=== PATIENT | male | born 1945 | race Caucasian/White ===

== ENCOUNTER 2018-08-06 06:22 | Day surgery (SDC) | payer MEDICARE, BC ==
[~2018-08-06 06:22] MED LIST: Acetaminophen TAB* 325 MG PO PRN; Buffered Lidocaine 0.9% SYRIN* 5 ML/SYR SYRINGE INTRADERM ONE
[2018-08-06] MEDS ORDERED: Midazolam* 1 MG/ML 5 ML VIAL (5 MG) ONE (07:32)
[2018-08-06] MEDS ORDERED: fentaNYL* 50 MCG/ML 2 ML VIAL (100 MCG VIAL) ONE (07:32)
[2018-08-06 08:30] VITALS: BP 101/59
[2018-08-06] MEDS ORDERED: Lidocaine 1%* 5 ML VIAL ONE (15:26)
[2018-08-06] MEDS ORDERED: Phenylephrine 2.5% OPTH.SOL* 2 ML BTL ONE (15:26)
[2018-08-06] MEDS ORDERED: Tetracaine 0.5% OPTH.SOL 4 ML* 1 DROP BTL ONE (15:26)
[2018-08-06] MEDS ORDERED: Neomycin/Polymy/Dex OPHTH.OIN* 3.5 GM ONE (15:26)
[2018-08-06] MEDS ORDERED: Ketorolac 0.5% OPHTH (NF) 0.5 % 5 ML BTL ONE (15:26)
[2018-08-06] MEDS ORDERED: Cyclopentolate 1% OPTH.SOL* 2 ML BTL ONE (15:26)
[2018-08-06] MEDS ORDERED: Tropicamide 1% OPTH.SOL* BTL ONE (15:26)
--- NOTE | 2018-08-06 20:32 | OP ---
DATE OF OPERATION: 08/06/18 - [facility] DATE OF : 41 SURGEON: William Martel MD LOCOMOTIVE MECHANIC APPRENTICE: None. ANESTHESIA: Topical with intravenous sedation. PRE-OP DIAGNOSIS: Cataract and glaucoma, right eye. POST-OP DIAGNOSIS: Cataract and glaucoma, right eye. OPERATIVE PROCEDURE: Phacoemulsification and cataract extraction with posterior chamber intraocular lens implant and iStent implant, right eye. COMPLICATIONS: None. BLOOD LOSS: None. DESCRIPTION OF PROCEDURE: The patient was brought to the operating room and received intravenous sedation. A drop of Tetracaine was placed in his right eye. The patient was prepped and draped in usual sterile fashion for ophthalmic surgery and attention was directed to the right eye where a speculum was placed. A paracentesis was created at the 11 o'clock position and 0.1 cc of 1% preservative- free lidocaine was injected into the anterior chamber followed by DisCoVisc. The eye was digitally stabilized while a 2.75 mm keratome was used to create a triplanar clear corneal incision at the 9 o'clock position. A continuous curvilinear capsulorrhexis was created with a cystotome and Utrata forceps. BSS on a cannula was used to hydrodissect the lens from the capsule. Phacoemulsification was performed in a [id number]-rdzftnn technique to create 4 fragments, which were removed. Residual cortical material was removed with irrigation and aspiration. DisCoVisc was used to inflate the capsular bag. An AU00T0 15.5 diopter lens was inserted into the capsular bag. Supplemental DisCoVisc was used to deepen the anterior chamber and coat the surface of the cornea. The patient's head was rotated away from the surgeon and the microscope was rotated toward the surgeon. A gonioprism was placed on the surface of the eye. An iStent inject extracorporeal circulation specialist was introduced into the anterior chamber. Under direct visualization, an iStent inject was placed at the 2 o' clock and then the 4 o'clock position. The iStent inject extracorporeal circulation specialist and the gonioprism were removed. The head and microscope were returned to a neutral position. Irrigation and aspiration were performed to remove viscoelastic from the eye. BSS on a cannula was used to hydrate the corneal stroma and seal the wound. At the end of the case, the pupil was round, the lens was centered and stable, the iStent inject were in position. The eye pressure appeared normal and the wound was water tight. The speculum was removed and topical Maxitrol ointment was placed on the surface of the eye. The eye was closed, patched and shielded and the patient was sent to the recovery room in stable condition with postoperative instructions and followup appointment given. [id number]/[facility]PS #: [id number] [facility]
== END 2018-08-06 08:37 | disposition home or self-care (01) ==
LOC: OREAST 06:22
PROVIDERS: ATTEND Ophthalmology
DX: H25.11 Age-related nuclear cataract, right eye (principal); H40.10X1 Unspecified open-angle glaucoma, mild stage; Z85.46 Personal history of malignant neoplasm of prostate; Z85.819 Personal history of malignant neoplasm of unspecified site of lip, oral cavity, and pharynx; Z85.21 Personal history of malignant neoplasm of larynx; Z87.891 Personal history of nicotine dependence; I25.10 Atherosclerotic heart disease of native coronary artery without angina pectoris; Z95.1 Presence of aortocoronary bypass graft; I10 Essential (primary) hypertension
CPT/HCPCS: A9270-GY; C1783; J2250; J3010; V2632

== ENCOUNTER 2018-08-13 07:29 | Day surgery (SDC) | payer MEDICARE, BC ==
[2018-08-13] MEDS ORDERED: Midazolam* 1 MG/ML 2 ML VIAL (2 MG) ONE (08:09)
[2018-08-13] MEDS ORDERED: fentaNYL* 50 MCG/ML 2 ML VIAL (100 MCG VIAL) ONE (08:09)
[2018-08-13 09:48] VITALS: BP 107/77
[2018-08-13] MEDS ORDERED: Neomycin/Polymy/Dex OPHTH.OIN* 3.5 GM ONE (11:10)
[2018-08-13] MEDS ORDERED: Tetracaine 0.5% OPTH.SOL 4 ML* 1 DROP BTL ONE (11:10)
[2018-08-13] MEDS ORDERED: Ketorolac 0.5% OPHTH (NF) 0.5 % 5 ML BTL ONE (11:10)
[2018-08-13] MEDS ORDERED: Tropicamide 1% OPTH.SOL* BTL ONE (11:10)
[2018-08-13] MEDS ORDERED: Phenylephrine 2.5% OPTH.SOL* 2 ML BTL ONE (11:10)
[2018-08-13] MEDS ORDERED: Cyclopentolate 1% OPTH.SOL* 2 ML BTL ONE (11:10)
[2018-08-13] MEDS ORDERED: Lidocaine 1%* 5 ML VIAL ONE (11:10)
--- NOTE | 2018-08-13 13:12 | OP ---
DATE OF OPERATION: 08/13/18 - [facility] DATE OF : 41 SURGEON: Dr. William Martel. CAKE WINDER: None. ANESTHESIA: Topical with intravenous sedation. PRE-OP DIAGNOSIS: Cataract and glaucoma, left eye. POST-OP DIAGNOSIS: Cataract and glaucoma, left eye. OPERATIVE PROCEDURE: Phacoemulsification and cataract extraction with posterior chamber intraocular lens implant as well as iStent inject implant left eye. COMPLICATIONS: None. BLOOD LOSS: None. DESCRIPTION OF PROCEDURE: The patient was brought to the operating room and received intravenous sedation. A drop of tetracaine was placed into his left eye. The patient was prepped and draped in the usual sterile fashion for ophthalmic surgery and attention was directed to the left eye where a speculum was placed. A paracentesis was created at the 5 o'clock position and 0.1 cc of 1% preservative- free lidocaine was injected into the anterior chamber followed by DisCoVisc. The eye was digitally stabilized while a 2.75-mm keratome was used to create a triplanar clear corneal incision at the 3 o'clock position. A continuous curvilinear capsulorrhexis was created with a cystotome and Utrata forceps. BSS on a cannula was used to hydrodissect the lens from the capsule. Phacoemulsification was performed in a wdguui-fyt-hioswcz technique to create 4 fragments, which were removed. Residual cortical material was removed with irrigation and aspiration. DisCoVisc was used to inflate the capsular bag. An AU00T0 19.0 diopter lens was inserted into the capsular bag. Supplemental DisCoVisc was used to deepen the anterior chamber and coat the surface of the cornea. The patient's head was rotated away from the surgeon and the microscope was rotated toward the surgeon. A gonioprism was placed on the surface of the eye. An iStent inject dev technical mgr was introduced into the anterior chamber. Under direct visualization, an iStent inject was placed at the 8 o' clock and 10 o'clock positions and directed meshwork of the left eye. The dev technical mgr and gonioprism were removed. The head and microscope were returned to a neutral position. DisCoVisc was removed from the eye using irrigation and aspiration. BSS on a cannula was used to hydrate the corneal stroma and seal the wound. At the end of the case, the pupil was round. The lens was centered and stable. The iStents were in good position. The eye pressure appeared normal and the wound was water tight. The speculum was removed and topical Maxitrol ointment was placed on the surface of the eye. The eye was closed, patched, and shielded, and the patient was sent to the recovery room in stable condition with postop instructions and followup appointment given. [id number]/[facility] #: [id number] [place]
== END 2018-08-13 09:57 | disposition home or self-care (01) ==
LOC: OREAST 07:29
PROVIDERS: ATTEND Ophthalmology
DX: Z01.818 Encounter for other preprocedural examination (principal); H25.12 Age-related nuclear cataract, left eye; H40.1121 Primary open-angle glaucoma, left eye, mild stage; C02.9 Malignant neoplasm of tongue, unspecified; I25.10 Atherosclerotic heart disease of native coronary artery without angina pectoris; Z85.46 Personal history of malignant neoplasm of prostate
CPT/HCPCS: 0474T; 66984; A9270-GY; C1783; J2250; J3010; V2632

== ENCOUNTER 2019-07-31 07:42 | Day surgery (SDC) | payer MEDICARE, BC ==
--- NOTE | 2019-07-31 08:02 | ED ---
GI/ HPI - HPI Summary HPI Summary: Pt. is a 74 y.o male who presents to the ER for hematuria that started yesterday. Pt. notes chills and pressure to bladder. Pt. on Eliquis with a hx of afib. Pt. has a hx of remote prostate cancer. Follows with Dr. Ledezma. Pt. states he had hematuria years ago and had a cauterization. Pt. denies SOB, CP, light headedness or dizziness. Sxs are moderate in severity. No current modifying factors. - History of Current Complaint Chief Complaint: EDUrogenitalProblems Time Seen by Provider: 07/31/19 08:00 Stated Complaint: BLEEDING FROM PENIS PER PT Hx Obtained From: Patient Pain Intensity: 0 - Allergy/Home Medications Allergies/Adverse Reactions: Allergies Allergy/AdvReac Type Severity Reaction Status Date / Time No Known Allergies Allergy Verified 07/31/19 07:48 Home Medications: Home Medications Atorvastatin* 80 mg PO DAILY 07/31/19 [History Confirmed 07/31/19] Calcium 500 + Vit D Caplet 1 tab PO QAM 07/31/19 [History Confirmed 07/31/19] Multiple Vitamins 1 tab PO QAM 07/31/19 [History Confirmed 07/31/19] Ramipril CAP* 10 mg PO DAILY 07/31/19 [History Confirmed 07/31/19] PMH/Surg Hx/FS Hx/Imm Hx Previously Healthy: Yes Endocrine/Hematology History: Denies: Hx Diabetes, Hx Thyroid Disease Cardiovascular History: Reports: Hx Hypertension, Other Cardiovascular Problems/ Disorders - QUAD BYPASS [facility] 1992 Comment Only: Hx Coronary Artery Disease - 1992 QUADRUPLE BY-PASS SURGERY Respiratory History: Denies: Hx Asthma, Hx Chronic Obstructive Pulmonary Disease (COPD) GI History: Denies: Hx Ulcer History: Reports: Hx Kidney Stones, Other Problems/Disorders - Hx OF PROSTATE CANCER, BLADDER LESIONS Musculoskeletal History: Denies: Hx Rheumatoid Arthritis, Hx Osteoporosis Sensory History: Reports: Hx Cataracts, Hx Contacts or Glasses - GLASSES Denies: Hx Hearing Aid Opthamlomology History: Reports: Hx Cataracts, Hx Contacts or Glasses - GLASSES - Cancer History Cancer Type, Location and Year: Prostate CA 2000 and 2007 (radiation x 8Weeks). 2004 "cancer at the base of my tongue" - Surgical History Surgery Procedure, Year, and Place: 4x bypass 1992, prostatectomy 2000. 2004 CANCER ON TONGUE Hx Anesthesia Reactions: No Infectious Disease History: No Infectious Disease History: Denies: Hx Clostridium Difficile, Hx Hepatitis, Traveled Outside the [place] in Last 30 Days - Family History Known Family History: Positive: Non-Contributory - Social History Occupation: Retired Lives: With Family Alcohol Use: None Substance Use Type: Reports: None Smoking Status (MU): Former Smoker Type: Cigarettes Amount Used/How Often: 1986 Length of Time of Smoking/Using Tobacco: quit at age 38 Have You Smoked in the Last Year: No Review of Systems Positive: Chills. Negative: Fever Cardiovascular: Negative Negative: Chest Pain Respiratory: Negative Negative: Shortness Of Breath Gastrointestinal: Negative Genitourinary: Other - Hematuria, bladder pressure. All Other Systems Reviewed And Are Negative: Yes Physical Exam Triage Information Reviewed: Yes Vital Signs On Initial Exam: Initial Vitals Temp Pulse Resp BP Pulse Ox 97.3 F 78 16 157/96 100 07/31/19 07:43 07/31/19 07:43 07/31/19 07:43 07/31/19 07:43 07/31/19 07:43 Vital Signs Reviewed: Yes Appearance: Positive: Well-Appearing - Pt. sitting up in bed in NAD. Pleasant. present. Skin: Positive: Warm, Dry Head/Face: Positive: Normal Head/Face Inspection Eyes: Positive: Normal, EOMI Neck: Positive: Supple Respiratory/Lung Sounds: Positive: Clear to Auscultation, Breath Sounds Present Cardiovascular: Positive: Normal, RRR Abdomen Description: Positive: Other: - Abd. is soft with mild suprapubic tenderness. No CVA tenderness. Neurological: Positive: Normal, CN Intact II-III Psychiatric: Positive: Affect/Mood Appropriate Procedures - Sedation Patient Received Moderate/Deep Sedation with Procedure: No Diagnostics - Vital Signs Vital Signs Temp Pulse Resp BP Pulse Ox 07/31/19 07:43 97.3 F 78 16 157/96 100 - Laboratory Result Diagrams: 07/31/19 08:23 07/31/19 08:23 Lab Statement: Any lab studies that have been ordered have been reviewed, and results considered in the medical decision making process. GIGU Course/Dx - Course Course Of Treatment: Pt. with lon hematuria. Afebrile and well appearing. Bladder scan 800cc but pt. able to void >400cc. Labs show stable H and H. U/A unable to result secondary to blood. Discussed with Dr. Garsia and will place rondon. Discussed case with Dr. Ledezma, urology. He would IV fluids and manual irrigation. 20 gauge placed and irrigated by nurse. Urine continues to be bloody. Dr. Ledezma examined pt. in ED. He plans to take pt. to the OR for further treatment. ECG done at 1050 shows a sinus rhythm of 72bpm, normal axis , PVC, no STEMI. - Diagnoses Differential Diagnoses - Male: Urinary Tract Infection Provider Diagnoses: Hematuria Discharge ED - Sign-Out/Discharge Documenting (check all that apply): Patient Departure - Discharge Plan Condition: Stable Disposition: ADMITTED TO [facility] Referrals: Meek Boss MD [Primary Care Provider] - - Billing Disposition and Condition Condition: STABLE Disposition: Admitted to [facility]
[2019-07-31 08:39] LABS: ABS Eosinophils 0.1 10^3/ul (0-0.6); ABS Lymphocytes 0.6 10^3/ul (1.0-4.8); ABS Monocytes 0.3 10^3/ul (0-0.8); ABS Neutrophils 5.5 10^3/ul (1.5-7.7); Eosinophil % 1.8 %; Hematocrit 48 % (42-52); Hemoglobin 16.3 g/dL (14.0-18.0); Lymphocyte % 9.6 %; Mean Corpuscular HGB Conc 34 g/dL (31-36); Mean Corpuscular Hemoglobin 31 pg (27-31); Mean Corpuscular Volume 92 fL (80-94); Mean Platelet Volume 8.7 fL (7.4-10.4); Platelet Count 183 10^3/uL (150-450); Red Blood Count 5.19 10^6 /uL (4.18-5.48); Red Cell Distribution Width 14 % (10-15); White Blood Count 6.6 10^3/uL (3.5-10.8)
[2019-07-31 08:48] LABS: INR 1.44 (0.82-1.09)
[2019-07-31 08:49] LABS: Albumin 4.8 g/dL (3.2-5.2); BUN/Creatinine Ratio 18.9 (8-20); Calcium 10.1 mg/dL (8.6-10.3); EGFR African American 82.2 (>60); EGFR Non-African American 67.9 (>60); Globulin 2.4 g/dL (2-4); Potassium 4.4 mmol/L (3.5-5.0); Total Bilirubin 0.9 mg/dL (0.2-1.0); Total Protein 7.2 g/dL (6.4-8.9)
[2019-07-31 08:56] LABS: Urine Appearance Cloudy; Urine Color Red; Urine Specific Gravity 1.012 (1.010-1.030)
[2019-07-31 08:57] LABS: Urine Red Blood Cell 3+(>10/hpf) (Absent)
[2019-07-31] MEDS ORDERED: NS 0.9% 1000 ML** 1,000 ML IV ONE (09:30)
[2019-07-31] MEDS ORDERED: cefTRIAXone(*) 2 GM ADDV.VIAL IVPB ONE (11:26)
[2019-07-31] MEDS ORDERED: Propofol* 10 MG/ML 20 ML BTL ONE (11:34)
[2019-07-31] MEDS ORDERED: Lidocaine 2% PF * 5 ML VIAL ONE (11:34)
[2019-07-31] MEDS ORDERED: fentaNYL* 50 MCG/ML 2 ML VIAL (100 MCG VIAL) ONE (11:34)
[2019-07-31] MEDS ORDERED: Phenylephrine 40 MCG/ML SYRINGE ONE (12:16)
--- NOTE | 2019-07-31 12:29 | HP ---
CC: Dr. Meek Boss * HISTORY AND PHYSICAL: DATE OF ADMISSION AND SURGERY: 07/31/19 HISTORY OF PRESENT ILLNESS: Mr. Ruth is a 74-year-old white male who is admitted with recurrent episodes of gross hematuria for cystoscopy, bladder biopsies, and fulguration of bladder bleeders. Mr. Ruth's history goes back to 2000 when he was diagnosed with prostate carcinoma. He underwent radical retropubic prostatectomy at [facility]. The pathology was Eulalia 7, stage III disease. Because of PSA recurrence, he received a course of salvage radiation therapy to the pelvis in 2007. He did very well and has had no recurrent disease and his PSA had remained 0.0. In 2014, he developed episodes of gross painless hematuria and work-up at that time showed that the hematuria was originating from bladder lesions that had the gross appearance of radiation cystitis. He required 2 procedures in 2014 for bladder biopsies and fulguration of the bleeders. The pathology at that time confirmed radiation cystitis lesions. The work-up of the upper tract was normal, showing only simple renal cysts. The patient was doing very well with no recurrent gross hematuria until yesterday when he noticed gross hematuria. The condition became worse during the night, and he presented to the emergency room this morning in clot urinary retention. Bladder scan showed 800 cc in his bladder. He had a Coronado catheter placed and the bladder was irrigated and patient observed. The urine continued to be bloody. Because of that history, the patient is taken to the operating room for cystoscopy, bladder biopsies, and fulgurations. Until the episode of hematuria yesterday, the patient has been voiding well with good stream and no incontinence. PAST MEDICAL HISTORY AND SYSTEM REVIEW: 1. The patient has a history of coronary artery disease and had required coronary bypass surgery in 1992. He has done well and has had no recurrent myocardial disease. Last year, he was diagnosed with atrial fibrillation with syncopal episodes. He was worked up and followed Dr. Aponte. He had been maintained on Eliquis 5 mg twice a day. In September 2018, he had insertion of an event monitor. He has had no recurrent episodes of dizziness or syncope. He had an echocardiogram in May 2018 showing an ejection fraction of 50%. He has not had any chest pain, shortness of breath, or difficulty breathing. 2. 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 He was treated in [facility] with a combination of chemotherapy, radiation therapy, and surgery. He has done very well and has had no recurrent disease. 3. The patient has hyperlipidemia, on treatment. MEDICATIONS: 1. Eliquis 5 mg 1 tablet twice a day. 2. Atorvastatin 80 mg daily. 3. Ramipril 10 mg daily. ALLERGIES: He denies any allergies to medications. FAMILY HISTORY: Negative. SOCIAL HISTORY: He is a nonsmoker. He does not drink alcohol. He does not use any drugs. Mental health is normal. PHYSICAL EXAMINATION GENERAL: He is a pleasant, healthy looking white male who is in no distress. VITAL SIGNS: Blood pressure 150/90, pulse of 78. LUNGS: Clear. HEART: Regular and rhythmic. No murmurs. ABDOMEN: Soft. No masses. No tenderness. No CVA tenderness. There is no suprapubic distention or tenderness (Coronado catheter in place). EXTREMITIES: Show no edema. He has good peripheral distal pulses. IMPRESSION: 1. 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 2. Status post radical retropubic prostatectomy. 3. History of coronary artery disease, stable. History of supraventricular arrhythmias, well controlled on treatment, on anticoagulation. PLAN: Plan is for cystoscopy, biopsy of bladder lesions if noted, and fulguration of bladder bleeders. I discussed the above plans in detail with the patient and his . Considering his past history and his presentation, it is unlikely that the hematuria at this time is renal in origin, but still he will need imaging of his kidneys at a later date. [id number]/[facility] #: [id number] [facility]
[2019-07-31] MEDS ORDERED: Ondansetron INJ* 2 MG/ML VIAL ONE (12:31)
[2019-07-31 14:20] VITALS: BP 160/93
--- NOTE | 2019-07-31 20:15 | OP ---
CC: Dr. Meek Boss; Dr. Aponte * DATE OF OPERATION: 07/31/19 - [facility] DATE OF : 41 SURGEON: Jose C Ledezma MD. ANESTHESIOLOGIST: Dr. Robert Gauthier. ANESTHESIA: General. PRE-OP DIAGNOSES: 1. Gross hematuria due to radiation cystitis. 2. Clot urinary retention due to above. POST-OP DIAGNOSES: 1. Gross hematuria due to radiation cystitis. 2. Clot urinary retention due to above. 3. Bleeders at the bladder neck. OPERATIVE PROCEDURES: 1. Cystoscopy. 2. Evacuation of a clot urinary retention. 3. Fulguration of bleeders of bladder neck. INDICATION FOR PROCEDURE: Mr. Ruth is a 74-year-old white male who had radical retropubic prostatectomy for prostate carcinoma followed by a course of external beam radiation therapy for PSA recurrence in 2004. He developed radiation cystitis and had required biopsies and fulguration of bladder bleeders in 2014. The patient has been on Eliquis because of cardiac arrhythmias. He presented today to the emergency room with gross hematuria and clot urinary retention. He continued to have the hematuria following catheter placement and bladder irrigations. He is taken to the operating room for cystoscopy and fulguration. PATHOLOGY: At cystoscopy, the penile and bulbar urethrae looked normal. The external sphincter was intact. There was an element of bladder neck contracture. Bleeders were noted in the bladder neck. The ureteral orifices looked normal. Clear efflux was seen coming from both ureteral orifices. There was prominence of the submucosal vessels in the bladder wall, but there was no active bleeding noted and there were no suspicious bladder lesions seen. No calculi or diverticula were noted. The bleeding seemed to be originating from the bladder neck. There was about 50 cc of clots in the bladder. DESCRIPTION OF PROCEDURE: After successful general anesthesia, the patient was placed in the lithotomy position and was prepped and draped for a cystoscopy. Cystoscopy was performed. The bladder was inspected and could not be well visualized because of the presence of the clots. The cystoscope was then removed and the resectoscope was introduced under direct vision inside the bladder. Gentle dilation of the bladder neck was then carried with the resectoscope. The bladder was then irrigated and all the clots were evacuated. Cystoscopy was then performed and the above findings were noted, namely, the clear efflux from both orifices, the absence of any suspicious lesions or bleeders from the bladder wall, and the bleeding points from the bladder neck. Using the coagulation current, gentle fulguration was carried in the bladder neck. Care was taken to stay away from the external sphincter to avoid any damage to it and to avoid stress incontinence. After controlling all the bleeders from the bladder neck, a final inspection of the bladder showed no residual blood clots and no bleeding. The resectoscope was then removed. A size 20-Azeri Coronado catheter was then passed inside the bladder and the balloon inflated with 20 cc of water. The catheter was placed under gentle traction and taped to the right thigh of the patient. Irrigation yielded clear returns. The patient tolerated the procedure well and left the operating room in good condition. The plan is to keep the patient in the recovery room for an hour or two on traction. It will then be released. The plan is to send the patient home with a Coronado catheter. He was asked to hold off on the Eliquis for the next 4 days. I will see him in the office in 4 days for followup and for Coronado catheter removal. [id number]/[facility] #: [id number] [place]
== END 2019-07-31 14:23 | disposition home or self-care (01) ==
LOC: ED 07:42 → OR 13:00
PROVIDERS: ATTEND Urology
DX: N30.41 Irradiation cystitis with hematuria (principal); N32.89 Other specified disorders of bladder; R33.8 Other retention of urine; I48.91 Unspecified atrial fibrillation; Z79.01 Long term (current) use of anticoagulants; Z85.46 Personal history of malignant neoplasm of prostate; I25.10 Atherosclerotic heart disease of native coronary artery without angina pectoris; Z95.1 Presence of aortocoronary bypass graft; Z87.891 Personal history of nicotine dependence; I47.1 Supraventricular tachycardia
CPT/HCPCS: 36415; 80053; 81003; 85025; 85610; 93005; 99283; J0696; J2405; J2704; J3010

== ENCOUNTER 2019-12-11 09:23 | Inpatient (IN) | payer MEDICARE, BC ==
--- OUTSIDE RECORDS SUMMARY | 2019-12-11 09:36 | XMS REPORT | Continuity of Care Document ---
:1945 External Reference #:[id number] Author Name Rosaura Aponte M.D. (transmitted by agent of provider Lily Arreola) Address [address] [place] [address] Care Team Providers Name Role Phone Meek Boss MD - Endocrinology, Care Team Information Hospitality Associate Diabetes & Metabolism Jose C Ledezma MD - Urology Care Team Information Hospitality Associate [phone] Problems Active Problems Provider Date Arteriosclerosis of autologous vein coronary Rosaura Aponte M.D. Onset: 2014 artery bypass graft Essential hypertension Rosaura Aponte M.D. Onset: 05/04/2015 Mixed hyperlipidemia Rosaura Aponte M.D. Onset: 05/04/2015 First degree atrioventricular block Rosaura Aponte M.D. Onset: 05/04/2015 Aneurysm of thoracic aorta Rosaura Aponte M.D. Onset: 05/11/2016 Atherosclerotic heart disease of [place] coronary Rosaura Aponte M.D. Onset: artery without angina pectoris Mitral valve disorder Rosaura Aponte M.D. Onset: 06/07/2017 Atrial flutter Rosaura Aponte M.D. Onset: 08/22/2018 Social History Type Date Description Comments Sex Unknown ETOH Use Denies alcohol use Tobacco Use Start: Unknown End: Patient is a former smoked for 30 Unknown smoker years, quit in 1983 Recreational Drug Use Denies Drug Use Smoking Status Reviewed: 08/14/19 Patient is a former smoked for 30 smoker years, quit in 1983 Exercise Type/Frequency Exercises regularly Walks a mile to a few miles daily Allergies, Adverse Reactions, Alerts Description No Known Drug Allergies Medications Active Medications SIG Qnty Indications Ordering Date Provider Willie 1 by mouth twice a 180tabs I48.92 Rosaura Aponte, 08/22/2018 5mg Tablets day M.D. Atorvastatin Calcium 1 tab by mouth 90tabs Rosaura Aponte, 04/07/2013 every day M.D. 80mg Tablets Colestipol HCL 4 tabs by mouth 360tabs Rosaura Aponte, 09/04/2012 1gm every day M.D. Tablets Fish Oil 1 by mouth every Unknown Capsules day Calcium D 1 po qd 60tabs Unknown 600mg Tablets Ramipril 1 tablet by mouth 90caps I10 Unknown 10mg every day Capsules Dorzolamide Instill One Drop Unknown HCL/Timolol Maleate Into Each Eye Two Times A Day 22.3-6.8mg/ml Solution Sildenafil Citrate 1 tablet po as Unknown needed prior to 100mg Tablets intercourse Immunizations Description No Information Available Vital Signs Date Vital Result Comment 08/28/2019 10:11am Height 69 inches 5'9" Weight 161.00 lb W/ shoes Heart Rate 60 /min L radial, regular BP Systolic 115 mmHg L arm, regular cuff BP Diastolic 88 mmHg L arm, regular cuff BP Systolic Sitting 112 mmHg R arm, regular cuff BP Diastolic Sitting 78 mmHg R arm, regular cuff BP Systolic Standing 112 mmHg R arm, regular cuff BP Diastolic Standing 80 mmHg R arm, regular cuff Respiratory Rate 16 /min BMI (Body Mass Index) 23.8 kg/m2 08/14/2019 2:35pm Height 69 inches 5'9" Weight 154.00 lb with out shoes Heart Rate 66 /min BP Systolic Sitting 170 mmHg Lue reg cuff BP Diastolic Sitting 100 mmHg Lue reg cuff BP Systolic Standing 166 mmHg Lue reg cuff BP Diastolic Standing 94 mmHg Lue reg cuff BP Systolic Recheck 150 mmHg Rue reg cuff BP Diastolic Recheck 90 mmHg Rue reg cuff Respiratory Rate 16 /min BMI (Body Mass Index) 22.7 kg/m2 Ejection Fraction 55-60% date 09/24/18 ECHO Results Test Acquired Date Facility Test Result H/L Range Note Lipid Panel - 08/13/2019 [facility] Creatine 122 U/L Normal 10 -223 [address] [address] Kinase(CK) [place], [place] [id number] [phone] Comp Metabolic 08/13/2019 [facility] Sodium 140 mmol/L Normal 135-145 Panel [address] [place] [address] [phone] Potassium 4.1 mmol/L Normal 3.5-5.0 Chloride 106 mmol/L Normal 101-111 Co2 Carbon Dioxide 31 mmol/L Normal 22-32 Anion Gap 3 mmol/L Normal 2-11 Glucose 94 mg/dL Normal 70-100 Blood Urea Nitrogen 16 mg/dL Normal 6-24 Creatinine 1.01 mg/dL Normal 0.67-1.17 BUN/Creatinine Ratio 15.8 Normal 8-20 Calcium 9.6 mg/dL Normal 8.6-10.3 Total Protein 5.9 g/dL Low 6.4-8.9 Albumin 4.2 g/dL Normal 3.2-5.2 Globulin 1.7 g/dL Low 2-4 Albumin/Globulin Ratio 2.5 Normal 1-3 Total Bilirubin 0.50 mg/dL Normal 0.2-1.0 Alkaline Phosphatase 100 U/L Normal 34-104 Alt 17 U/L Normal 7-52 Ast 23 U/L Normal 13-39 Egfr Non- 71.8 >60 Egfr 86.9 >60 2 Lipid Profile 08/13/2019 [facility] Triglycerides 144 mg/dL 3 (Trig/Chol/HDL) [address] [place] [address] [phone] Cholesterol 133 mg/dL 4 HDL Cholesterol 39.4 mg/dL 5 LDL Cholesterol 65 mg/dL 6 1 FASTING 2 Because ethnic data is not always readily available, this report includes an eGFR for both -Americans and non- Americans. The National Kidney Disease Education Program (NKDEP) does not endorse the use of the MDRD equation for patients that are not between the ages of 18 and 70, are , have extremes of body size, muscle mass, or nutritional status, or are non- or non-. According to the National Kidney Foundation, irrespective of diagnosis, the stage of the disease is based on the level of kidney function: Stage Description GFR(mL/min/1.73 m(2)) 1 Kidney damage with normal or decreased GFR 90 2 Kidney damage with mild decrease in GFR 60-89 3 Moderate decrease in GFR 30-59 4 Severe decrease in GFR 15-29 5 Kidney failure <15 (or dialysis) 3 Desirable: <150 Borderline High: 150-199 High: 200-499 Very High: >500 4 Desirable: <200 Borderline High: 200-239 High: >239 5 Low: <40 Desirable: 40-60 High: >60 6 Desirable: <100 Near Optimal: 100-129 Borderline High: 130-159 High: 160-189 Very High: >189 Procedures Date Code Description Status 11/11/2019 93257 Interrogation Dev Loop Recorder Incl Physician Completed Analysis,Rev,Repor 10/11/2019 32572 Interrogation Dev Loop Recorder Incl Physician Completed Analysis,Rev,Repor 09/10/2019 [id number] Interrogation Dev Loop Recorder Incl Physician Completed Analysis,Rev,Repor 08/10/2019 32548 Implantable Cardio System Loop Recorder Sys Remota Data Completed [facility] 08/10/2019 79093 Interrogation Dev Loop Recorder Incl Physician Completed Analysis,Rev,Repor 07/10/2019 37717 Implantable Cardio System Loop Recorder Sys Remota Data Completed [facility] 07/10/2019 33713 Interrogation Dev Loop Recorder Incl Physician Completed Analysis,Rev,Repor 06/09/2019 42178 Implantable Cardio System Loop Recorder Sys Remota Data Completed [facility] 06/09/2019 41925 Interrogation Dev Loop Recorder Incl Physician Completed Analysis,Rev,Repor 10/23/2017 [id number] Colonoscopy Completed Medical Devices Description No Information Available Encounters Type Date Location Provider Dx Diagnosis Office Visit 08/28/2019 [facility] Nurse Visit IC I10 Essential ( primary) 10:00a Of [facility] hypertension Office Visit 08/14/2019 [facility] Rosaura Aponte, R55 Syncope and collapse 2:40p Of [facility] Zay.DLu I25.810 Atherosclerosis of CABG w/o angina pectoris I10 Essential (primary) hypertension E78.2 Mixed hyperlipidemia I48.92 Unspecified atrial flutter G47.33 Obstructive sleep apnea (adult) (pediatric) R31.0 Gross hematuria Office Visit 07/11/2019 2:00p [facility] Rosaura Aponte I48.92 Unspecified Of [facility] Zay.DLu atrial flutter Z95.818 Presence of other cardiac implants and grafts R55 Syncope and collapse I25.810 Atherosclerosis of CABG w/o angina pectoris E78.2 Mixed hyperlipidemia I10 Essential (primary) hypertension Assessments Date Code Description Provider 11/11/2019 R55 Syncope and collapse Rosaura Aponte M.D. 11/11/2019 I48.0 Paroxysmal atrial fibrillation Rosaura Aponte M.D. 11/11/2019 Z95.818 Presence of other cardiac implants and grafts Rosaura Aponte M.D. 10/11/2019 R55 Syncope and collapse Rosaura Aponte M.D. 10/11/2019 I48.0 Paroxysmal atrial fibrillation Rosaura Aponte M.D. 10/11/2019 Z95.818 Presence of other cardiac implants and grafts Rosaura Aponte M.D. 09/10/2019 R55 Syncope and collapse Rosaura Aponte M.D. 09/10/2019 I48.0 Paroxysmal atrial fibrillation Rosaura Aponte M.D. 09/10/2019 Z95.818 Presence of other cardiac implants and grafts Rosaura Aponte M.D. 08/28/2019 I10 Essential (primary) hypertension Rosaura Aponte M.D. 08/28/2019 I10 Essential (primary) hypertension Nurse Visit IC 08/14/2019 R55 Syncope and collapse Rosaura Aponte M.D. 08/14/2019 I25.810 Atherosclerosis of coronary artery bypass Rosaura Aponte M.D. graft(s) without a 08/14/2019 I10 Essential (primary) hypertension Rosaura Aponte M.D. 08/14/2019 E78.2 Mixed hyperlipidemia Rosaura Aponte M.D. 08/14/2019 I48.92 Unspecified atrial flutter Rosaura Aponte M.D. 08/14/2019 G47.33 Obstructive sleep apnea (adult) (pediatric) Rosaura Aponte M.D. 08/14/2019 R31.0 Gross hematuria Rosaura Aponte M.D. 08/10/2019 R55 Syncope and collapse Rosaura Aponte M.D. 08/10/2019 I48.0 Paroxysmal atrial fibrillation Rosaura Aponte M.D. 08/10/2019 Z95.818 Presence of other cardiac implants and grafts Rosaura Aponte M.D. 07/11/2019 I48.92 Unspecified atrial flutter Rosaura Aponte M.D. 07/11/2019 Z95.818 Presence of other cardiac implants and grafts Rosaura Aponte M.D. 07/11/2019 R55 Syncope and collapse Rosaura Aponte M.D. 07/11/2019 I25.810 Atherosclerosis of coronary artery bypass Rosaura Aponte M.D. graft(s) without a 07/11/2019 E78.2 Mixed hyperlipidemia Rosaura Aponte M.D. 07/11/2019 I10 Essential (primary) hypertension Rosaura Aponte M.D. 07/10/2019 R55 Syncope and collapse Rosaura Aponte M.D. 07/10/2019 I48.0 Paroxysmal atrial fibrillation Rosaura Aponte M.D. 07/10/2019 Z95.818 Presence of other cardiac implants and grafts Rosaura Aponte M.D. 06/09/2019 R55 Syncope and collapse Rosaura Aponte M.D. 06/09/2019 I48.0 Paroxysmal atrial fibrillation Rosaura Aponte M.D. 06/09/2019 Z95.818 Presence of other cardiac implants and grafts Rosaura Aponte M.D. Plan of Treatment Future Appointment(s):12/15/2019 2:40 pm - Rosaura Aponte M.D. at [facility]08/28/2019 - Nurse Visit ICI10 Essential (primary) hypertension Functional Status Description No Information Available Mental Status Description No Information Available Referrals Description No Information Available
--- OUTSIDE RECORDS SUMMARY | 2019-12-11 09:36 | XMS REPORT | Continuity of Care Document ---
:1945 External Reference #:[id number] Author Name Rosaura Aponte M.D. (transmitted by agent of provider Lily Arreola) Address [address] [place] [address] Care Team Providers Name Role Phone Meek Boss MD - Endocrinology, Care Team Information Supervisor [employer] Diabetes & Metabolism Jose C Ledezma MD - Urology Care Team Information Supervisor [employer] [phone] Problems Active Problems Provider Date Arteriosclerosis of autologous vein coronary Rosaura Aponte M.D. Onset: 2014 artery bypass graft Essential hypertension Rosaura Aponte M.D. Onset: 05/04/2015 Mixed hyperlipidemia Rosaura Aponte M.D. Onset: 05/04/2015 First degree atrioventricular block Rosaura Aponte M.D. Onset: 05/04/2015 Aneurysm of thoracic aorta Rosaura Aponte M.D. Onset: 05/11/2016 Atherosclerotic heart disease of [place] coronary Rosaura Aponte M.D. Onset: artery without [...] H/L Range Note Lipid Panel - 08/13/2019 [facility] Creatine 122 U/L Normal 10 -223 [address] [address] Kinase(CK) [place], [place] [id number] [phone] Comp Metabolic 08/13/2019 [facility] Sodium 140 mmol/L Normal 135-145 Panel [address] [place] [address] [phone] Potassium 4.1 mmol/L Normal 3.5-5.0 Chloride 106 [...] Egfr 86.9 >60 2 Lipid Profile 08/13/2019 [facility] Triglycerides 144 mg/dL 3 (Trig/Chol/HDL) [address] [place] [address] [phone] Cholesterol 133 mg/dL 4 HDL Cholesterol 39.4 [...] High: >189 Procedures Date Code Description Status 10/11/2019 37136 Interrogation Dev Loop Recorder Incl Physician Completed Analysis,Rev,Repor 09/10/2019 04204 Interrogation Dev Loop Recorder Incl Physician Completed Analysis,Rev,Repor 08/10/2019 96382 Implantable Cardio System Loop Recorder Sys Remota Data Completed [facility] 08/10/2019 69351 Interrogation Dev Loop Recorder Incl Physician Completed Analysis,Rev,Repor 07/10/2019 [id number] Implantable Cardio System Loop Recorder Sys Remota Data Completed [facility] 07/10/2019 81555 Interrogation Dev Loop Recorder Incl Physician Completed Analysis,Rev,Repor 06/09/2019 [id number] Implantable Cardio System Loop Recorder Sys Remota Data Completed [facility] 06/09/2019 30592 Interrogation Dev Loop Recorder Incl Physician Completed Analysis,Rev,Repor 05/09/2019 13751 Implantable Cardio System Loop Recorder Sys Remota Data Completed [facility] 05/09/2019 64745 Interrogation Dev Loop Recorder Incl Physician Completed Analysis,Rev,Repor 10/23/2017 [id number] Colonoscopy Completed Medical Devices Description No Information Available Encounters Type Date Location Provider Dx Diagnosis Office Visit 08/28/2019 [facility] Nurse Visit IC I10 Essential ( primary) 10:00a Of [facility] hypertension Office Visit 08/14/2019 [facility] Rosaura Aponte R55 Syncope and collapse 2:40p Of [facility] I25.810 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 08/10/2019 R55 Syncope and collapse Roasura Aponte M.D. 08/10/2019 I48.0 Paroxysmal atrial fibrillation [...] cardiac implants and grafts Rosaura Aponte M.D. 05/09/2019 R55 Syncope and collapse Rosaura Aponte M.D. 05/09/2019 I48.0 Paroxysmal atrial fibrillation Rosaura Aponte M.D. 05/09/2019 Z95.818 Presence of other cardiac implants and grafts Rosaura Aponte M.D. Plan of Treatment Future Appointment(s):12/15/2019 2:40 pm - Ros[facility] Ap[facility] M.D. at [facility]08/28/2019 - Nurse Visit ICI10 Essential (primary) hypertension Functional Status Description No Information Available Mental Status Description No Information Available Referrals Description No Information Available
--- OUTSIDE RECORDS SUMMARY | 2019-12-11 09:36 | XMS REPORT | Continuity of Care Document ---
:1945 External Reference #:[id number] Author Name Rosaura Aponte M.D. (transmitted by agent of provider Lily Arreola) Address [address] [place] [address] Care Team Providers Name Role Phone Meek Boss MD - Endocrinology, Care Team Information Purchasing Intern [phone] Diabetes & Metabolism Jose C Ledezma MD - Urology Care Team Information Purchasing Intern [phone] Problems Active Problems Provider Date Arteriosclerosis of autologous vein coronary Rosaura Aponte M.D. Onset: 2014 artery bypass graft Essential hypertension Rosaura Aponte M.D. Onset: 05/04/2015 Mixed hyperlipidemia Rosaura Aponte M.D. Onset: 05/04/2015 First degree atrioventricular block Rosaura Aponte M.D. Onset: 05/04/2015 Aneurysm of thoracic aorta Rosaura Aponte M.D. Onset: 05/11/2016 Atherosclerotic heart disease of [place] coronary Rosaura Aponte M.D. Onset: artery without [...] H/L Range Note Lipid Panel - 08/13/2019 [facility] Creatine 122 U/L Normal 10 -223 [address] [address] Kinase(CK) [place], [place] [id number] [phone] Comp Metabolic 08/13/2019 [facility] Sodium 140 mmol/L Normal 135-145 Panel [address] [place] [address] [phone] Potassium 4.1 mmol/L Normal 3.5-5.0 Chloride 106 [...] Egfr 86.9 >60 2 Lipid Profile 08/13/2019 [facility] Triglycerides 144 mg/dL 3 (Trig/Chol/HDL) [address] [place] [address] [phone] Cholesterol 133 mg/dL 4 HDL Cholesterol 39.4 [...] >189 Procedures Date Code Description Status 10/11/2019 15789 Interrogation Dev Loop Recorder Incl Physician Completed Analysis,Rev,Repor 09/10/2019 11089 Interrogation Dev Loop Recorder Incl Physician Completed Analysis,Rev,Repor 08/10/2019 [id number] Implantable Cardio System Loop Recorder Sys Remota Data Completed [facility] 08/10/2019 50147 Interrogation Dev Loop Recorder Incl Physician Completed Analysis,Rev,Repor 07/10/2019 [id number] Implantable Cardio System Loop Recorder Sys Remota Data Completed [facility] 07/10/2019 90593 Interrogation Dev Loop Recorder Incl Physician Completed Analysis,Rev,Repor 06/09/2019 [id number] Implantable Cardio System Loop Recorder Sys Remota Data Completed [facility] 06/09/2019 70188 Interrogation Dev Loop Recorder Incl Physician Completed Analysis,Rev,Repor 10/23/2017 [id number] Colonoscopy Completed Medical Devices Description No Information Available Encounters Type Date Location Provider Dx Diagnosis Office Visit 08/28/2019 [facility] Nurse Visit IC I10 Essential ( primary) 10:00a Of [facility] hypertension Office Visit 08/14/2019 [facility] Rosaura Aponte, R55 Syncope and collapse 2:40p Of [facility] I25.810 Atherosclerosis of 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
--- NOTE | 2019-12-11 09:40 | ED ---
Dizziness - HPI Summary HPI Summary: 74 year old M presenting to [facility] with a chief complaint of syncope and a fall earlier today. The patient states that he was brushing his teeth when he suddenly fell and hit his head on the sink. He lost consciousness - unsure duration. Pt stuck forehead - no other injuries No pain. The patient rates the pain 0/10 in severity. Patient denies any chipped teeth, blood HEENT, chest pain, shortness of breath, abdominal pain, n/v/d, cough, fever, new neck pain ( baseline discomfort with flexion) ext numbness or tingling, back pain. Symptoms aggravated by nothing. Symptoms alleviated by nothing. The patient was advised by Dr. Aponte to come to the emergency department for further evaluation. He has had a previous syncopal episode in 2018 and has a loop recorder placed. He is status post 4 vessel CABG. He is prescribed Eliquis. Pt without any complaints at this time. No prodrome to syncope. Patient's medication as entered in EMR by cage supervisor reviewed this visit. Allergy list reviewed. - History Of Current Complaint Stated Complaint: FALL- HEAD INJURY ON BLOOD THINNERS Time Seen by Provider: 12/11/19 09:25 Hx Obtained From: Patient Onset/Duration: Suddenly Timing: Constant Character: Dizzy Aggravating Factor(s): Nothing Alleviating Factor(s): Nothing Associated Signs And Symptoms: Positive: Negative - Abdominal pain, neck pain, back pain, numbness, tingling, cough, Other: - Loss of consciousness. Negative : Nausea, Vomiting, Chest Pain, SOB, Fever - Allergies/Home Medications Allergies/Adverse Reactions: Allergies Allergy/AdvReac Type Severity Reaction Status Date / Time No Known Allergies Allergy Verified 12/11/19 09:28 Home Medications: Home Medications Colestipol (NF) 1 gm PO QID 06/26/14 [History Confirmed 12/11/19] Dorzolamide HCl/Timolol Maleat [Cosopt Eye Drops] 1 drop BOTH EYES BID 10/17/17 [History Confirmed 12/11/19] Apixaban* [Eliquis*] 5 mg PO DAILY 10/03/18 [History Confirmed 12/11/19] Aspirin EC TAB* [Ecotrin EC Low Dose 81 MG*] 81 mg PO DAILY 12/11/19 [History Confirmed 12/11/19] Atorvastatin* [Lipitor*] 80 mg PO DAILY 12/11/19 [History Confirmed 12/11/19] Multivitamins/Minerals TAB* [Theragran/minerals TAB*] 1 tab PO DAILY 12/11/19 [ History Confirmed 12/11/19] Sildenafil (NF) [Viagra (NF)] 100 mg PO ONCE PRN 12/11/19 [History Confirmed 05/23] PMH/Surg Hx/FS Hx/Imm Hx Endocrine/Hematology History: Denies: Hx Diabetes, Hx Thyroid Disease Cardiovascular History: Reports: Hx Hypertension, Other Cardiovascular Problems/ Disorders - QUAD BYPASS BRONSON 1992 Denies: Hx Atrial Fibrillation Comment Only: Hx Coronary Artery Disease - 1992 QUADRUPLE BY-PASS SURGERY Respiratory History: Denies: Hx Asthma, Hx Chronic Obstructive Pulmonary Disease (COPD) GI History: Denies: Hx Ulcer History: Reports: Hx Kidney Stones, Other Problems/Disorders - Hx OF PROSTATE CANCER, BLADDER LESIONS Musculoskeletal History: Denies: Hx Rheumatoid Arthritis, Hx Osteoporosis Sensory History: Reports: Hx Cataracts, Hx Contacts or Glasses - GLASSES Denies: Hx Hearing Aid Opthamlomology History: Reports: Hx Cataracts, Hx Contacts or Glasses - GLASSES Neurological History: Denies: Hx CVA - Cancer History Cancer Type, Location and Year: Prostate CA 2000 and 2007 (radiation x 8Weeks). 2004 "cancer at the base of my tongue" - Surgical History Surgery Procedure, Year, and Place: 4x bypass 1992, prostatectomy 2000. 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 Appendectomy Hx Anesthesia Reactions: No Infectious Disease History: No Infectious Disease History: Denies: Hx Clostridium Difficile, Hx Hepatitis, Traveled Outside the [place] in Last 30 Days - Family History Known Family History: Positive: Cardiac Disease - Social History Alcohol Use: None Alcohol Amount: Last alcohol ingested a long time ago per patient Substance Use Type: Reports: None Smoking Status (MU): Former Smoker Type: Cigarettes Amount Used/How Often: 1986 Length of Time of Smoking/Using Tobacco: quit at age 38 Have You Smoked in the Last Year: No Review of Systems Negative: Fever ENT: Negative - Chipped teeth Negative: Chest Pain Negative: Shortness Of Breath, Cough Negative: Abdominal Pain, Vomiting, Nausea Musculoskeletal: Negative - Neck pain, back pain Neurological/Mental Status: Other - Dizziness, loss of consciousness Negative: Paresthesia, Numbness All Other Systems Reviewed And Are Negative: Yes Physical Exam - Summary Physical Exam Summary: Vital Signs Reviewed: Yes A+Ox3, no distress, appropriate Eyes: Conjunctiva Clear, TERRY. EOM intact and full ENT: Hearing grossly normal TM x 2 clear, mmoist, uvula midline, no exudate, no erythema Neck: Positive: Supple No midline pain c/t/l/s Respiratory: Positive: No respiratory distress, No accessory muscle use + CTA throughout no w/r Cardiovascular: RRR nl s1, s2 no m/r CBT <2 sec, no bruits abd soft + BS nt/nd no guarding, no distension Musculoskeletal Exam: THAKUR x 4 without difficulty Strength Intact, ROM Intact Neurological: Positive: Alert, + sensation throughout Psychological: Positive: Normal Response To examiner Skin: Positive: no rash, Pt with quarter size contusion frontal area - no open wounds, no crepitus no pain discomfort palpation of facial bones Triage Information Reviewed: Yes Vital Signs On Initial Exam: Initial Vitals Temp Pulse Resp BP Pulse Ox 98.6 F 69 16 155/91 92 12/11/19 09:25 12/11/19 09:25 12/11/19 09:25 12/11/19 09:25 12/11/19 09:25 Vital Signs Reviewed: Yes Procedures - Sedation Patient Received Moderate/Deep Sedation with Procedure: No Diagnostics - Vital Signs Vital Signs Temp Pulse Resp BP Pulse Ox 12/11/19 09:25 98.6 F 69 16 155/91 92 - Laboratory Result Diagrams: 12/11/19 10:13 12/11/19 10:13 Lab Statement: Any lab studies that have been ordered have been reviewed, and results considered in the medical decision making process. - Radiology Chest x-ray Radiology Interpretation Completed By: Radiologist Summary of Radiographic Findings: No active cardiopulmonary disease is noted. ED physician has reviewed this report. - CT Brain CT CT Interpretation Completed By: Radiologist Summary of CT Findings: There is no evidence of intracranial mass or hemorrhage noted. ED physician has reviewed this report. Re-Evaluation - Re-Evaluation First Eval Comment: Pt continues asymptomatic - labs reviewed. Received message from Dr. Alejandro- Pt with second degree block on recorder at time of syncope - admit to hospitalist - pacer patch and atropine available. Plan for pt to have pacemaker tomorrow. I did discuss this with patient - understanding of plan - will communicate with by phone as no visitors for COVID precautions. I discussed with Dr. Boss - requested hospitalist admission Dizzy Course/Dx - Course Course Of Treatment: Pt presents to ED after a syncopal episode this morning - no prodrome. Pt struck frontal area - on eliquis. No other injuries no complaints. Pt with an episode of syncope in 2018 - has loop recorded - directed to ED by Dr Aponte. REviewed vitals. EKG. Will check labs, CT head , CXR, interrogate recorder, orthostatics and discuss with cardiology. Pt comfortable and in agreement with plan. On tele - Diagnoses Provider Diagnoses: Syncope, Dysrhythmia - Provider Notifications Discussed Care Of Patient With: Jamie Aranda Time Discussed With Above Provider: 11:00 Instructed by Provider To: Other - Discussed with Dr. Aranda who will admit the patient. Discharge ED - Sign-Out/Discharge Documenting (check all that apply): Patient Departure - Discharge Plan Condition: Stable Disposition: ADMITTED TO [facility] Referrals: Meek Boss MD [Primary Care Provider] - - Billing Disposition and Condition Condition: STABLE Disposition: Admitted to [facility] - Attestation Statements Document Initiated by Scribe: Yes Documenting Scribe: Bronwyn Diaz Provider For Whom Scribe is Documenting (Include Credential): Loan Gonzales MD Scribe Attestation: I, Bronwyn Diaz, scribed for Loan Gonzales MD on 12/11/19 at 1140. Scribe Documentation Reviewed: Yes Provider Attestation: The documentation as recorded by the Bronwyn rizo accurately reflects the service I personally performed and the decisions made by me, Loan Gonzales MD Status of Scribe Document: Viewed
[2019-12-11 10:20] LABS: ABS Basophils 0.1 10^3/ul (0-0.2); ABS Eosinophils 0.1 10^3/ul (0-0.6); ABS Lymphocytes 0.5 10^3/ul (1.0-4.8); ABS Monocytes 0.3 10^3/ul (0-0.8); ABS Neutrophils 3.9 10^3/ul (1.5-7.7); Eosinophil % 2.1 %; Hematocrit 42 % (42-52); Hemoglobin 14.6 g/dL (14.0-18.0); Mean Corpuscular HGB Conc 35 g/dL (31-36); Mean Corpuscular Hemoglobin 32 pg (27-31); Mean Corpuscular Volume 91 fL (80-94); Mean Platelet Volume 8.8 fL (7.4-10.4); Platelet Count 158 10^3/uL (150-450); Red Blood Count 4.57 10^6 /uL (4.18-5.48); Red Cell Distribution Width 14 % (10-15)
[2019-12-11] MEDS ORDERED: Atropine SYRINGE* 0.1 MG/ML 10 ML SYRINGE (1 MG) ONE (10:34)
[2019-12-11 10:41] LABS: Troponin I 0.01 ng/mL (<0.03)
[2019-12-11 10:42] LABS: Albumin 4.2 g/dL (3.2-5.2); Albumin/Globulin Ratio 2.1 (1-3); BUN/Creatinine Ratio 18.8 (8-20); Calcium 9.7 mg/dL (8.6-10.3); EGFR African American 86.9 (>60); EGFR Non-African American 71.8 (>60); Magnesium 1.9 mg/dL (1.9-2.7); Potassium 4.2 mmol/L (3.5-5.0); Total Bilirubin 0.6 mg/dL (0.2-1.0); Total Protein 6.2 g/dL (6.4-8.9)
[2019-12-11] MEDS ORDERED: Atropine 1MG/ML INJ* 1 ML VIAL IV PUSH ONE (10:52)
[2019-12-11 11:39] LABS: TSH (Thyroid Stimulating Horm) 3.52 mcIU/mL (0.34-5.60)
[2019-12-11] MEDS ORDERED: Acetaminophen TAB* 325 MG PO PRN (12:04)
[2019-12-11] MEDS ORDERED: Ondansetron INJ* 2 MG/ML VIAL IV PRN (12:04)
[2019-12-11] MEDS: COLESTIPOL 1 GM PO SCH ×3 (13:20→20:56)
--- NOTE | 2019-12-11 13:42 | CONSULT ---
Subjective Date of Service: 12/11/19 Interval History: Primary Care Physician: Meek Boss MD Kidney Puller: Dr. Aponte Service: Hospitalist CC: Syncope Reason for consult: Symptomatic bradycardia HPI Jairon Ruth is a 74 year old man with a history as below. He was in his usual state of health this morning when he had syncope. He has been feeling well recently and walking at least 1 hour a day with his without any chest discomfort or dyspnea. He had not taken his morning medications yet. He may have been brushing his teeth or just finished. He was not shaving and had no neck extension. He had no prodrome. He woke up on ground and has forehead trauma. Linq monitor during episode showed about 12 seconds of NSR at 60 bpm with 2:1 AV block and ventricular rate of ~ 30 bpm. He now feels well and is asymptomatic. Allergies: No Known Drug Allergy 05/19/14 allergy list reviewed on PMH/surgical hx Coronary Artery Disease (CAD) - [id number] (COPELAND to the LAD, SVG- OM branch,SVG- RCA. Cath in 2000 COPELAND+SVG's patent. [place] 90% LAD occlusion, critical circumflex occlusion, OM1- 80% occlusion, RCA 100% occluded. Atrial Flutter - (2018) Noted on EM during sleep hours. On Eliquis Throat Cancer Prostate Cancer Hypertension Hyperlipidemia Syncope - EM implanted Sleep Apnea - (2019) Mild +, more energy, sleeps better Hx flutter to eval. Prostatectomy - Radical Head and neck surgery, - PENDING SALE TO [facility] Cataract Removal - (2018) [facility] [place] FH: [place]. Father: due to at 36 of [place]. Mother: due to at 68 of [place]. Siblings:2 - eldest bro at 79 of unknown causes younger brother alive at 73-74, hx of [place] in late 20's in [facility]. 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 Alcohol: Denies alcohol use. Drug Use: Denies Drug Use.D Medications Active Medications: Acetaminophen (Tylenol Tab*) 650 mg PO Q6H PRN PRN Reason: MILD PAIN or TEMP > 100.4 Atorvastatin Calcium (Lipitor*) 80 mg PO DAILY REPLACED BY [facility] Colestipol HCl (Colestipol (Nf)) 1 gm PO QID REPLACED BY [facility]; Protocol Last Admin: 12/11/19 13:20 Dose: Not Given Lactated Ringer's (Lactated Ringers 1000 Ml Bag*) 1,000 mls @ 75 mls/hr IV PER RATE REPLACED BY [facility] Multivitamins/Minerals (Theragran/Minerals Tab*) 1 tab PO DAILY REPLACED BY [facility] Ondansetron HCl (Zofran Inj*) 4 mg IV Q6H PRN PRN Reason: NAUSEA Home Medications: Colestipol (NF) 1 gm PO QID 06/26/14 [History Confirmed 12/11/19] Dorzolamide HCl/Timolol Maleat [Cosopt Eye Drops] 1 drop BOTH EYES BID 10/17/17 [History Confirmed 12/11/19] Apixaban* [Eliquis*] 5 mg PO DAILY 10/03/18 [History Confirmed 12/11/19] Aspirin EC TAB* [Ecotrin EC Low Dose 81 MG*] 81 mg PO DAILY 12/11/19 [History Confirmed 12/11/19] Atorvastatin* [Lipitor*] 80 mg PO DAILY 12/11/19 [History Confirmed 12/11/19] Multivitamins/Minerals TAB* [Theragran/minerals TAB*] 1 tab PO DAILY 12/11/19 [ History Confirmed 12/11/19] Sildenafil (NF) [Viagra (NF)] 100 mg PO ONCE PRN 12/11/19 [History Confirmed 05/23] Review of Systems - Measurements Intake and Output: Intake and Output Last 24 Hours 12/09/19 12/10/19 12/11/19 12/12/19 06:59 06:59 06:59 06:59 Weight 157 lb 1.6 oz - Review of Systems Constitutional Symptoms: Negative: Weight Gain, Weight Loss, Fever Dermatology: Negative: Rash, Cancer HEENT: Negative: Change in Hearing, Vertigo Eyes: Negative: Change in Vision, Double Vision Thyroid: Negative: Weight Loss, Weight Gain Pulmonary: Negative: Asthma, Exercise Intolerance Cardiology: Positive: Syncope Negative: Chest Pain, Shortness of Breath, Palpitations, Edema, Claudication , Paroxysmal Nocturnal Dyspnea, Orthopnea Gastroenterology: Negative: Blood in Stools, Haematemesis, Melena Genital - Urinary: Negative: Dysuria, Hematuria, Nocturia Musculoskeletal: Negative: Joint Pain, Joint Stiffness Endocrinology: Negative: Obesity, Diabetes, Polydipsia, Polyuria Hematologic/Lymphatic: Positive: Use of Anticoagulant Negative: Hx Leukemia, Hx Lymphoma, Use of Antiplatelet Drugs Neurology: Negative: Change in Speech, Change in Sphincter Function, Change in Walking, Hx of Stroke\TIA, Hx Seizures Psychiatry: Negative: Unusual Anxiety, Suicidal Ideation Allergic/Immunologic: Negative: Hx HIV, Immunocompromise Review of Systems Statement: All other review of systems negative, unless stated above. Objective Vital Signs: Temp Pulse Resp BP Pulse Ox 97.8 F 75 16 127/98 97 12/11/19 13:17 12/11/19 13:17 12/11/19 13:17 12/11/19 13:17 12/11/19 13:17 Oxygen Devices in Use Now: None Appearance: nad, pleasant Ears/Nose/Mouth/Throat: Clear Oropharnyx, Mucous Membranes Moist Neck: NL Appearance and Movements; NL JVP, Trachea Midline Respiratory: Symmetrical Chest Expansion and Respiratory Effort, Clear to Auscultation Cardiovascular: NL Sounds; No Murmurs; No JVD, RRR, No Edema, - - sternotomy scar Abdominal: NL Sounds; No Tenderness; No Distention Extremities: No Edema Skin: No Rash or Ulcers Neurological: Alert and Oriented x 3 Laboratory Results: 12/11/19 10:13 12/11/19 10:13 Total Bilirubin 0.60 mg/dL (0.2-1.0) 12/11/19 10:13 AST 24 U/L (13-39) 12/11/19 10:13 ALT 21 U/L (7-52) 12/11/19 10:13 Alkaline Phosphatase 59 U/L (34-104) 12/11/19 10:13 Total Protein 6.2 g/dL (6.4-8.9) L 12/11/19 10:13 Albumin 4.2 g/dL (3.2-5.2) 12/11/19 10:13 Globulin 2.0 g/dL (2-4) 12/11/19 10:13 Albumin/Globulin Ratio 2.1 (1-3) 12/11/19 10:13 TSH 3.52 mcIU/mL (0.34-5.60) 12/11/19 10:13 12/11/19 10:13 Troponin I 0.01 Diagnostic Imaging: Cardiac Testing: Echocardiogram - (09/24/2018) Left ventricle cavity is normal in size. Normal left ventricular shape. Visual EF 55-60%. Mildly abnl septal wall motion due to post-operative coronary artery bypass graft. Focal area of relative hypokinesis at the base of the inferior- posterior wall, best seen on short axis view. Doppler evidence of grade I ( impaired) diastolic dysfunction. Normal right ventricular systolic function. [place] trileaflet aortic valve with no regurgitation noted. Mild aortic valve leaflet thickening with mild calcification. [place] mitral valve with trace regurgitation. [place] tricuspid valve with mild regurgitation. Mild-moderately dilated ascending aorta: 4.0 cm. Compared with prior echo of 05/29/2017, LVEF is stable, MR has improved from mild/moderate, TR is stable, aorta previously 3.9 cm. Follow up cardiology is scheduled 10/10/18. 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 Resting BP 140/84 -> 204/88 No ischemia Stress Test - (06/01/2009) Echocardiogram - (05/29/2017) EF 50-55%. Grade 1 diastolic dysfunction. LA cavity mildly dilated. RV cavity mildly dilated. Trace AR. Mild aortic valve leaflet thickening with mild calcification. Mild/mod MR. Mild TR, eccentric medial jet. Mildly dilated ascending aorta: 3.9 cm. Echocardiogram - (08/22/2011) EF 62%, aorta 3.5 cm. Echocardiogram - (05/11/2014) EF 55%, focal area base IW is AK, trace valvular insufficiency, aorta 3.9 cm Cardiac Procedures: Coronary Bypass Grafting - (09/13/1992) COPELAND-LAD, SVG - OM, SVG- RCA Cardiac Catheterization - (06/10/1992) Cardiac Catheterization - (01/16/2001) [place]: LAD 90%, 80%, Cx 80% OM1, severe Cx, RCA 100% occluded. Grafts: COPELAND to LAD, SVG - OM1, SVG - RCA, all grafts distal to occlusions and patent. EF 45-50%. Exam Date: 12/11/19 IMPRESSION: There is no evidence of intracranial mass or hemorrhage noted. Exam Date: 12/11/19 IMPRESSION: No active cardiopulmonary disease is noted. EKG Data: 12/11/2019 NSr, 1 avb, otherwise essentially unremarkable. Generally similar (other than PVC noted previously) to 07/31/2019 Assessment/Plan Patient with symptomatic bradycardia/AVB block with syncope without any significant reversible causes (results of lymes test that had been ordered would not change management consultant in this clinical scenario). Permanent pacemaker indicated and recommended and patient would like to proceed. Hold timolol eye drops and eliquis (last dose 12/10/2019 in evening) and plan on pacemaker tomorrow with Dr. Aponte. Keep on bedrest with external pacemaker pads in place and atropine at bedside. Thank you for allowing me to participate in the cardiovascular care of this patient. Please do not hesitate to contact me with questions or concerns.
--- NOTE | 2019-12-11 15:05 | HP ---
Amended report to enter cosigning physician. CC: Dr. Meek Boss; Dr. Jose A Alejandro* ADMISSION HISTORY AND PHYSICAL: DATE OF ADMISSION: 12/11/19 PRIMARY CARE PROVIDER: Dr. Meek Boss. CONSULTING CHEMICAL LABORATORY ASSISTANT: Dr. Jose A Alejandro. ATTENDING PHYSICIAN: Dr. Grayson Gutierrez* (dictated by NATALIYA Patterson). CHIEF COMPLAINT: Syncope. HISTORY OF PRESENT ILLNESS: Mr. Ruth is a 74-year-old male with past medical history significant for coronary artery disease, hypertension, hyperlipidemia, and an episode of syncope in 2018, as well as AFib, prostate cancer, and tongue cancer, who presents to the emergency department after being in his normal state of health without functional limitations. No heart failure symptoms. No episodes of atrial fibrillation. This morning he was taking his pills in front of the mirror in the bathroom and passed out with no prodrome, hit his head on the way down, was unconscious for an unknown amount of time, woke up, felt almost back to his normal state right after waking up except for a little bit of grogginess, went to bed and lied down. He had no chest pain with this, no shortness of breath, no palpitations. The patient's called his doctor and he was instructed to come to the emergency department. The patient in the emergency department had another episode of dizziness. The patient had event monitor interrogated, which showed that he went into Mobitz type II heart block while having syncope. The patient had no other laboratory abnormalities to explain his syncope as troponin was normal. His EKG was unremarkable. The patient was recommended to have a pacemaker, and we were asked to evaluate the patient for admission to the hospital. PAST MEDICAL HISTORY: Coronary artery disease, status post CABG; prostate cancer; tongue cancer; atrial fibrillation, paroxysmal; hypertension; hyperlipidemia. PAST SURGICAL HISTORY: Quadruple bypass in 1992, prostatectomy in 2000, tongue cancer resection in 2004. MEDICATIONS: 1. Ramipril 10 mg p.o. daily. 2. Eliquis 5 mg p.o. b.i.d. 3. Multivitamin 1 tab p.o. daily. 4. Colestipol 1 g p.o. 4 times a day. 5. Lipitor 8 mg p.o. daily. 6. Timolol/dorzolamide eye drops 1 drop both eyes b.i.d. 7. Aspirin 81 mg p.o. daily. 8. Sildenafil 100 mg p.o. as needed for erectile dysfunction. ALLERGIES: No known drug allergies. FAMILY HISTORY: The patient's father of [place] at 38. The patient's mother of [place] at 71. SOCIAL HISTORY: The patient smoked from 1962 to 1988. The patient has not had any alcohol to drink since the year 2000. The patient denied illicit drugs. 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 The patient has been twice and has 2 children, 1 from each marriage. The patient's surrogate decision maker will be his Petrona Hutchison. REVIEW OF SYSTEMS: A 10-point review of systems was reviewed and is negative except as above in the HPI. PHYSICAL EXAMINATION GENERAL: The patient is a 74-year-old male who appears stated age, sitting in bed, in no acute distress. VITAL SIGNS: At the time of evaluation, temperature 98.6, pulse rate 75, respiratory rate 20, oxygen saturation 94% on room air, blood pressure 148/80. HEENT: Head normocephalic, atraumatic. Sclerae anicteric. No conjunctival injection. Nasal mucosa moist. Oral mucosa moist. No pharyngeal erythema, discharge, or exudate. NECK: Supple, nontender. No lymphadenopathy. No carotid bruits auscultated. No JVD. RESPIRATORY: Clear to auscultation bilaterally. No wheezes, rales, or rhonchi. Good air exchange bilaterally. CARDIAC: Regular rate and rhythm. No clicks, murmurs, gallops, or rubs. Pulses 2+ in bilateral dorsalis pedis, posterior tibialis, and radial areas. ABDOMEN: Soft, nontender, nondistended. Bowel sounds present, normoactive in all 4 quadrants. No hepatosplenomegaly. No abdominal bruits auscultated. No hepatojugular reflux. GENITOURINARY: No suprapubic or CVA tenderness. SKIN: Clean, dry, and intact. No rashes. NEUROLOGIC: Cranial nerves II through XII intact. No focal deficits. Alert and oriented x3. PSYCHIATRIC: Pleasant and cooperative. DIAGNOSTIC STUDIES/LAB DATA: White blood cell count 5.0, hemoglobin 14.6, platelet count 158. Sodium 138, potassium 4.2, chloride 104, carbon dioxide 30 , anion gap 4, BUN 19, creatinine 1.01, glucose 141, calcium 9.7, magnesium 1.9. Bilirubin 0.6, AST 24, ALT 21, alkaline phosphatase 69, troponin I 0.01, protein 6.2, albumin 4.2, globulin 2.0. TSH 3.52. Studies: EKG shows normal sinus rhythm, no ST segment elevation or depression. No hypertrophy or enlargement. Type 1 AV block, UT interval is 294, rate of 74, left axis deviation, QTc 452. Brain CT read as no acute intracranial pathology. Chest x-ray, there is no acute intrathoracic pathology. ASSESSMENT AND PLAN: Impression: Mr. Ruth is a 74-year-old male with past medical history significant for coronary artery disease, atrial fibrillation, hypertension, hyperlipidemia, who presents to the emergency department after an episode of syncope with no prodrome, found to have gone into second-degree heart block type 2 and would be admitted to the hospital for monitoring prior to the pacemaker. 1. Syncope, cardiogenic. The patient has a classic story for cardiogenic syncope. The patient has no preceding illness, no troponin elevation, no EKG changes concerning for ischemia. This is likely related to degeneration related to the patient's age. The patient will be admitted to the hospital and monitored closely with an external pacemaker placed and atropine available. The patient will be scheduled for a pacemaker in the morning. The patient's Eliquis will be held as well as his aspirin. The patient will have a Lyme serology added on. Though the patient knows no tick bites, the patient does go on frequent walks and it is possible this is the underlying etiology; however, the patient did have a similar episode in 2018 making this less likely. 2. Coronary artery disease. Hold the patient's aspirin, continue the patient' s Lipitor. The patient's troponin is negative and EKG is nonischemic. 3. Hyperlipidemia. Continue with Lipitor. 4. Hypertension. The patient is currently normotensive off any medications. These will be held for the time being and likely resume at discharge. 5. Tongue carcinoma. This does not appear to be an activation. 6. Prostate carcinoma. Continue the patient's colestipol. 7. FEN: The patient will have a regular unrestricted diet and then be n.p.o. after midnight with fluids after midnight 70 mL an hour. 8. Disposition: The patient will be admitted to the hospital. TIME SPENT: Approximately 60 minutes was spent on the admission of this patient , 30 of which was spent [id number] with the patient, obtaining history and physical, and discussing treatment plan. This plan was discussed with my attending Dr. Grayson Gutierrez, and he is in agreement. NATALIYA PATTERSON [id number]/[facility] #: [id number] [place]
[2019-12-12] MEDS ORDERED: Lactated Ringers 1000 ML Bag* 1,000 ML IV SCH
[2019-12-12] MEDS: COLESTIPOL 1 GM PO SCH ×4 (07:50→20:40)
--- NOTE | 2019-12-12 08:35 | PN ---
Cardiology Progress Note Date of Service: 12/12/19 - CC: syncope I saw and examined the pt today, notes reviewed. Risks and benefits of the procedure reviewed with the patient. Details of the procedure reviewed. Vital Signs - 12 hr Temp Pulse Resp BP Pulse Ox 12/12/19 07:33 98.4 F 72 16 145/67 97 12/12/19 04:01 98.3 F 84 16 124/76 98 12/11/19 23:46 98.2 F 87 18 143/76 95 Exam: Lean, tall, NAD Psych: energetic, pleasant, upbeat Neuro: AAO x3, grossly normal comprehension, speech, motor and sensory function. HEENT: mucous membranes moist. Neck LEFT s/p RT, sx. Respirations: Clear in all field. Cor: Well healed sternotomy scar, S1S2 regular, no murmurs. Abd: flat, normal bs. Ext: no edema, warm. Laboratory Last Values WBC 5.0 10^3/uL (3.5-10.8) 12/11/19 10:13 RBC 4.57 10^6 /uL (4.18-5.48) 12/11/19 10:13 Hgb 14.6 g/dL (14.0-18.0) 12/11/19 10:13 Hct 42 % (42-52) 12/11/19 10:13 MCV 91 fL (80-94) 12/11/19 10:13 MCH 32 pg (27-31) H 12/11/19 10:13 MCHC 35 g/dL (31-36) 12/11/19 10:13 RDW 14 % (10-15) 12/11/19 10:13 Plt Count 158 10^3/uL (150-450) 12/11/19 10:13 MPV 8.8 fL (7.4-10.4) 12/11/19 10:13 Neut % (Auto) 78.9 % 12/11/19 10:13 Lymph % (Auto) 11.0 % 12/11/19 10:13 Coke % (Auto) 6.9 % 12/11/19 10:13 Eos % (Auto) 2.1 % 12/11/19 10:13 Baso % (Auto) 1.1 % 12/11/19 10:13 Absolute Neuts (auto) 3.9 10^3/ul (1.5-7.7) 12/11/19 10:13 Absolute Lymphs (auto) 0.5 10^3/ul (1.0-4.8) L 12/11/19 10:13 Absolute Monos (auto) 0.3 10^3/ul (0-0.8) 12/11/19 10:13 Absolute Eos (auto) 0.1 10^3/ul (0-0.6) 12/11/19 10:13 Absolute Basos (auto) 0.1 10^3/ul (0-0.2) 12/11/19 10:13 Absolute Nucleated RBC 0.0 10^3/ul 12/11/19 10:13 Nucleated RBC % 0.0 12/11/19 10:13 Sodium 138 mmol/L (135-145) 12/11/19 10:13 Potassium 4.2 mmol/L (3.5-5.0) 12/11/19 10:13 Chloride 104 mmol/L (101-111) 12/11/19 10:13 Carbon Dioxide 30 mmol/L (22-32) 12/11/19 10:13 Anion Gap 4 mmol/L (2-11) 12/11/19 10:13 BUN 19 mg/dL (6-24) 12/11/19 10:13 Creatinine 1.01 mg/dL (0.67-1.17) 12/11/19 10:13 Est GFR ( Amer) 86.9 (>60) 12/11/19 10:13 Est GFR (Non-Af Amer) 71.8 (>60) 12/11/19 10:13 BUN/Creatinine Ratio 18.8 (8-20) 12/11/19 10:13 Glucose 141 mg/dL (70-100) H 12/11/19 10:13 Calcium 9.7 mg/dL (8.6-10.3) 12/11/19 10:13 Magnesium 1.9 mg/dL (1.9-2.7) 12/11/19 10:13 Total Bilirubin 0.60 mg/dL (0.2-1.0) 12/11/19 10:13 AST 24 U/L (13-39) 12/11/19 10:13 ALT 21 U/L (7-52) 12/11/19 10:13 Alkaline Phosphatase 59 U/L (34-104) 12/11/19 10:13 Troponin I 0.01 ng/mL (<0.03) 12/11/19 10:13 Total Protein 6.2 g/dL (6.4-8.9) L 12/11/19 10:13 Albumin 4.2 g/dL (3.2-5.2) 12/11/19 10:13 Globulin 2.0 g/dL (2-4) 12/11/19 10:13 Albumin/Globulin Ratio 2.1 (1-3) 12/11/19 10:13 TSH 3.52 mcIU/mL (0.34-5.60) 12/11/19 10:13 A/P 74 yo with old LA, CABG, PAF and hx syncope that led to Linq EM implant. Syncope yesterday w/o prodrome, Linq revealed high degree heart block. For pacemaker today. I verified Eliquis held since admission. Consent signed, additional pre op orders added. 2 PM: s/p dual chamber pacer implantation. KEEP OFF ELIQUIS FOR NOW
[2019-12-12] MEDS: Multivitamins/Minerals TAB PO SCH (08:51)
[2019-12-12] MEDS: Atorvastatin* 80 MG TAB PO SCH (08:51)
[2019-12-12] MEDS ORDERED: Iohexol 300* (CONTRAST) 10 ML SDV ONE (11:42)
[2019-12-12] MEDS ORDERED: Lidocaine 1% INJ* 10 MG/ML 30 ML SDV ONE (11:42)
[2019-12-12] MEDS ORDERED: ceFAZolin 2 GM PREMIX in ORs 2 GM/50 ML BAG IVPB ONE (11:55)
[2019-12-12] MEDS ORDERED: Midazolam* 1 MG/ML 5 ML VIAL (5 MG) ONE (12:17)
[2019-12-12] MEDS ORDERED: fentaNYL* 50 MCG/ML 2 ML VIAL (100 MCG VIAL) ONE (12:17)
[2019-12-12] MEDS ORDERED: oxyCODONE/Acetamin 5/325 MG* TAB PO PRN (14:01)
[2019-12-12] MEDS ORDERED: ceFAZolin VIAL(*) 1 GM in NS 0.9% 50 ML* 50 ML IVPB SCH (15:00)
[2019-12-12] MEDS: ceFAZolin 1 GM* X 3 DOSES POST-OP Q8H (AddVan) IVPB SCH ×4 (15:40→23:57)
--- NOTE | 2019-12-12 17:24 | PN ---
Subjective Date of Service: 12/12/19 Interval History: Pt is feeling well. The pacer site is sore but tolerable. No SOB. Objective Active Medications: Acetaminophen (Tylenol Tab*) 650 mg PO Q6H PRN PRN Reason: MILD PAIN or TEMP > 100.4 Atorvastatin Calcium (Lipitor*) 80 mg PO DAILY [facility] Last Admin: 12/12/19 08:51 Dose: 80 mg Colestipol HCl (Colestipol (Nf)) 1 gm PO QID [facility]; Protocol Last Admin: 12/12/19 15:44 Dose: Not Given Lactated Ringer's (Lactated Ringers 1000 Ml Bag*) 1,000 mls @ 75 mls/hr IV PER RATE [facility] Last Admin: 12/12/19 01:01 Dose: 75 mls/hr Cefazolin Sodium 1 gm/ Sodium (Chloride) 50 mls @ 200 mls/hr IVPB Q8H [facility] Stop: 12/13/19 07:14 Last Admin: 12/12/19 15:40 Dose: 200 mls/hr Multivitamins/Minerals (Theragran/Minerals Tab*) 1 tab PO DAILY [facility] Last Admin: 12/12/19 08:51 Dose: 1 tab Ondansetron HCl (Zofran Inj*) 4 mg IV Q6H PRN PRN Reason: NAUSEA Oxycodone/Acetaminophen (Percocet 5/325 Tab*) 1 tab PO Q4H PRN PRN Reason: PAIN - SEVERE Vital Signs - 8 hr 12/12/19 12/12/19 12/12/19 11:25 11:42 14:27 Temperature 98 F Pulse Rate 60 70 Respiratory 16 16 Rate Blood Pressure 136/69 (mmHg) O2 Sat by Pulse 98 92 Oximetry 12/12/19 12/12/19 12/12/19 14:29 14:43 14:54 Temperature 98.0 F Pulse Rate 72 61 72 Respiratory 16 Rate Blood Pressure 154/87 152/84 148/78 (mmHg) O2 Sat by Pulse 96 95 95 Oximetry 12/12/19 12/12/19 12/12/19 15:00 15:01 15:25 Temperature Pulse Rate 69 70 Respiratory Rate Blood Pressure 132/102 (mmHg) O2 Sat by Pulse 96 Oximetry 12/12/19 12/12/19 12/12/19 15:31 15:45 16:00 Temperature 98.2 F Pulse Rate 68 67 66 Respiratory 18 Rate Blood Pressure 150/76 (mmHg) O2 Sat by Pulse 94 94 95 Oximetry Oxygen Devices in Use Now: None Appearance: Elderly male sitting up in bed, NAD Eyes: No Scleral Icterus Ears/Nose/Mouth/Throat: Mucous Membranes Moist Respiratory: Symmetrical Chest Expansion and Respiratory Effort, Clear to Auscultation Cardiovascular: NL Sounds; No Murmurs; No JVD, RRR, No Edema Abdominal: NL Sounds; No Tenderness; No Distention Skin: - - bruise on L forehead Neurological: Alert and Oriented x 3 Result Diagrams: 12/11/19 10:13 12/11/19 10:13 Assess/Plan/Problems-Billing Mr Ruth is a 74 yo M who has a h/o CAD, PAF, HTN and HLD who presented to the ER after having a syncopal event. His event monitor was interrogated and he was found to be in mobitz type II second degree heart block and was admitted to get a pacemaker. - Patient Problems (1) Mobitz (type) II atrioventricular block Current Visit: Yes Status: Acute Code(s): I44.1 - ATRIOVENTRICULAR BLOCK, SECOND DEGREE SNOMED Code(s): 00741359 Comment: Pt received pacemaker today. Likely d/c home tomorrow. (2) PAF (paroxysmal atrial fibrillation) Current Visit: Yes Status: Acute Code(s): I48.0 - PAROXYSMAL ATRIAL FIBRILLATION SNOMED Code(s): 662977308 Comment: HR regular today. Eliquis to be restarted per cardiology. (3) CAD (coronary artery disease) Current Visit: Yes Status: Acute Code(s): I25.10 - ATHSCL HEART DISEASE OF [place] CORONARY ARTERY W/O ANG PCTRS SNOMED Code(s): 32654108 Comment: No c/o chest pain. Continue lipitor and ASA. (4) HTN (hypertension) Current Visit: Yes Status: Acute Code(s): I10 - ESSENTIAL (PRIMARY) HYPERTENSION SNOMED Code(s): 45565545 Comment: BP is mildly elevated. Will need to check with patient to see if he takes ramipril- it is listed on the dictated H&P and not on the home med list. (5) HLD (hyperlipidemia) Current Visit: Yes Status: Acute Code(s): E78.5 - HYPERLIPIDEMIA, UNSPECIFIED SNOMED Code(s): 77236142 Comment: Continue lipitor. (6) DVT prophylaxis Current Visit: Yes Status: Acute Code(s): Z29.9 - ENCOUNTER FOR PROPHYLACTIC MEASURES, UNSPECIFIED SNOMED Code(s): 698030313 Comment: ambulation (7) Full code status Current Visit: Yes Status: Acute Code(s): Z78.9 - OTHER SPECIFIED HEALTH STATUS SNOMED Code(s): 672627437
[2019-12-13] MEDS: ceFAZolin 1 GM* X 3 DOSES POST-OP Q8H (AddVan) IVPB SCH ×2 (08:03)
[2019-12-13] MEDS: COLESTIPOL 1 GM PO SCH ×4 (08:20→21:05)
[2019-12-13] MEDS: Multivitamins/Minerals TAB PO SCH (08:23)
[2019-12-13] MEDS: Atorvastatin* 80 MG TAB PO SCH (08:23)
--- NOTE | 2019-12-13 11:54 | PN ---
Subjective Date of Service: 12/13/19 - CC: s/p syncope and pacer implantation for heart block. Interval History: Primary Care Physician: Meek Boss MD Supervisor Contingents: Dr. Aponte The patient feels well, no incisional pain or SOB. No new c/o and states he feels well. PMH/surgical hx Coronary Artery Disease (CAD) - [id number] (COPELAND to the LAD, SVG- OM branch,SVG- RCA. Cath in 2000 COPELAND+SVG's patent. [place] 90% LAD occlusion, critical circumflex occlusion, OM1- 80% occlusion, RCA 100% occluded. Atrial Flutter - (2018) Noted on EM during sleep hours. On Eliquis Throat Cancer Prostate Cancer Hypertension Hyperlipidemia Syncope - EM implanted Sleep Apnea - (2019) Mild +, more energy, sleeps better Hx flutter to eval. Prostatectomy - Radical Head and neck surgery, - [facility] Cataract Removal - (2018) [facility] [place] Medications Active Medications: Acetaminophen (Tylenol Tab*) 650 mg PO Q6H PRN PRN Reason: MILD PAIN or TEMP > 100.4 Atorvastatin Calcium (Lipitor*) 80 mg PO DAILY [facility] Last Admin: 12/13/19 08:23 Dose: 80 mg Colestipol HCl (Colestipol (Nf)) 1 gm PO QID [facility]; Protocol Last Admin: 12/13/19 08:20 Dose: Not Given Multivitamins/Minerals (Theragran/Minerals Tab*) 1 tab PO DAILY [facility] Last Admin: 12/13/19 08:23 Dose: 1 tab Ondansetron HCl (Zofran Inj*) 4 mg IV Q6H PRN PRN Reason: NAUSEA Oxycodone/Acetaminophen (Percocet 5/325 Tab*) 1 tab PO Q4H PRN PRN Reason: PAIN - SEVERE Objective Vital Signs: Temp Pulse Resp BP Pulse Ox 98.8 F 74 16 132/75 93 12/13/19 07:00 12/13/19 07:00 12/13/19 07:00 12/13/19 07:00 12/13/19 07:00 Vital Signs - 12 hr Temp Pulse Resp BP Pulse Ox 12/13/19 07:00 98.8 F 74 16 132/75 93 12/13/19 05:00 97 12/13/19 03:23 98.9 F 75 18 129/83 97 12/13/19 01:00 97 Oxygen Devices in Use Now: None Appearance: Ly[place] at 30 degrees, comfortable, pleasant Eyes: PERRLA Ears/Nose/Mouth/Throat: Clear Oropharnyx, Mucous Membranes Moist Neck: NL Appearance and Movements; NL JVP - LEFT neck s/p RT, sx Respiratory: Clear to Auscultation - R lung clear, diminished BS L laateral lung field. Cardiovascular: NL Sounds; No Murmurs; No JVD, RRR, No Edema, - - sternotomy scar Abdominal: NL Sounds; No Tenderness; No Distention Extremities: No Edema Skin: No Rash or Ulcers, - - Incision left axilla w/o infection, hematoma or ecymosis. Neurological: Alert and Oriented x 3, NL Muscle Strength and Tone Lines/Tubes/Other Access: Clean, Dry and Intact Peripheral IV Laboratory Results: 12/11/19 10:13 12/11/19 10:13 Total Bilirubin 0.60 mg/dL (0.2-1.0) 12/11/19 10:13 AST 24 U/L (13-39) 12/11/19 10:13 ALT 21 U/L (7-52) 12/11/19 10:13 Alkaline Phosphatase 59 U/L (34-104) 12/11/19 10:13 Total Protein 6.2 g/dL (6.4-8.9) L 12/11/19 10:13 Albumin 4.2 g/dL (3.2-5.2) 12/11/19 10:13 Globulin 2.0 g/dL (2-4) 12/11/19 10:13 Albumin/Globulin Ratio 2.1 (1-3) 12/11/19 10:13 TSH 3.52 mcIU/mL (0.34-5.60) 12/11/19 10:13 12/11/19 10:13 Troponin I 0.01 Diagnostic Imaging: Cardiac Testing: Echocardiogram - (09/24/2018) Left ventricle cavity is normal in size. Normal left ventricular shape. Visual EF 55-60%. Mildly abnl septal wall motion due to post-operative coronary artery bypass graft. Focal area of relative hypokinesis at the base of the inferior- posterior wall, best seen on short axis view. Doppler evidence of grade I ( impaired) diastolic dysfunction. Normal right ventricular systolic function. [place] trileaflet aortic valve with no regurgitation noted. Mild aortic valve leaflet thickening with mild calcification. [place] mitral valve with trace regurgitation. [place] tricuspid valve with mild regurgitation. Mild-moderately dilated ascending aorta: 4.0 cm. Compared with prior echo of 05/29/2017, LVEF is stable, MR has improved from mild/moderate, TR is stable, aorta previously 3.9 cm. Follow up cardiology is scheduled 10/10/18. 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 Resting BP 140/84 -> 204/88 No ischemia Cardiac Procedures: Coronary Bypass Grafting - (09/13/1992) COPELAND-LAD, SVG - OM, SVG- RCA Cardiac Catheterization - (06/10/1992) Cardiac Catheterization - (01/16/2001) [place]: LAD 90%, 80%, Cx 80% OM1, severe Cx, RCA 100% occluded. Grafts: COPELAND to LAD, SVG - OM1, SVG - RCA, all grafts distal to occlusions and patent. EF 45-50%. Patient Name: KELSEY FREDERICK Medical Record#: [id number] Exam Date: 12/12/19 1403 ADM Status: ADM IN Order Information: CHEST AP/PORT Accession Number: [id number] CPT: 42926 INDICATION: Status post device implant. IMPRESSION: #. Negative for pneumothorax or pulmonary edema post dual chamber cardiac pacemaker placement. <Electronically signed by Rene Cornell MD in OV> 12/12/19 1608 Dictated By: Rene Cornell MD Patient Name: KELSEY FREDERICK Medical Record#: [id number] Ordering Physician: Rosaura Aponte MD Acct.#: [id number] : 1945 Age: 74 Sex: M Location: [address] [place] [address] MEDICAL/TELEMETRY Exam Date: 12/13/19 0700 ADM Status: ADM IN Order Information: CHEST PA & LAT 2 VWS IMPRESSION: #. Moderately large LEFT pneumothorax with significant enlargement. In retrospect a minimal LEFT apical pneumothorax is evident on the exam of one day prior. #. Negative for mediastinal shift. #. Results discussed with Dr. Aponte at 12/13/2019 10:36 AM EDT <Electronically signed by Rene Cornell MD in OV> 12/13/19 1041 Dictated By: Rene Cornell MD EKG Data: Stable and good pacing and sensing thresholds on interogation today. Assessment/Plan Patient with symptomatic bradycardia/AVB block with syncope without any significant reversible causes. POD #1 dual chamber pacer implant complicated with pneumothorax. Good pacer function. Good lead placement. Pt feels well. PLAN: Sx consulted for CT placement, indications/risks/benefits discussed with the patient. CT in, pt stable.
--- NOTE | 2019-12-13 13:16 | OP ---
CC: Dr. Meek Boss; Dr. Rosaura Aponte; [facility] CONSULTATION AND PROCEDURE NOTE: DATE OF PROCEDURE: 12/13/19 LOCATION: Room 448. HISTORY OF PRESENT ILLNESS: I was contacted by Cardiology to evaluate Mr. Ruth, a 74-year-old entleman, with a history of cardiac disease, who underwent placement of a left-sided pacemaker yester day. This is the patient's first pacemaker placement with a dual chamber pacer. The patient was on Eliquis and this was held for the procedure and has been maintained off. The patient underwent a chest x-ray postoperatively. Report reviewed showed negative pneumothorax. The patient was admitted overnight as per the routine and today, although the patient was doing well with no complaints, he underwent chest x-ray as routine and was noted to have a large left-sided pne umothorax. These images were reviewed as well as the report. PAST MEDICAL HISTORY: Reviewed. MEDICATIONS: List reviewed. PHYSICAL EXAM: On evaluation of the patient, he is comfortable, sitting up. Alert and oriented x3, answering questions appropriately. Head, ears, eyes, nose, and throat: Normocephalic, atraumatic. Sclerae anicteric. Mucous membranes moist. Neck: No lymphadenopathy. Midline trachea. Left upper chest: Positive subcutaneous emphysema. Mild ecchymosis with swelling. Dressing intact. Decreased breath sounds on the left. A sternotomy scar well healed with no malunion. Remainder of the exam un remarkable. IMPRESSION: Postprocedure pneumothorax, iatrogenic pneumothorax on the left. RECOMMENDATIONS: Left tube thoracostomy. DESCRIPTION OF PROCEDURE: I outlined the details of the procedure to Mr. Ruth, going over the r isks, benefits, and alternatives. The patient understood that this is my strong recommendation to go forward with the procedure and he agreed. He understood the possible complications which include, b ut not limited to, bleeding, infection, need for additional interventions as well as additional place ments of chest tubes. Consent was signed and the patient was prepped and draped in a standard fashio n. A time-out was performed. After injection of lidocaine overlying the third anterior rib on the left, I placed an 8-German Heiml ich valve tubing into the left chest with ease. An obvious gush of air was encountered. Some of thi s air was evacuated with syringe and then was hooked up to Pleur-evac tubing, which was then set to t he wall suction. The tube was sutured to the chest wall followed by sterile dressing. The patient t olerated the procedure well. He was noted to have a small air leak at the end of the procedure as ex pected. The dressing that I applied did overlap to the pacemaker dressing, keeping this intact. PLAN: Continued drainage and wall suction. Chest x-ray in an hour, possible discontinuation of the Heimlich valve tube tomorrow versus sending him home with tube. The patient understands that he may have to go home with a small chest tube but will take it. We will see how he is tomorrow. [id number]/[facility] #: [id number]
--- NOTE | 2019-12-13 21:10 | PN ---
Subjective Date of Service: 12/13/19 Interval History: Pt denies any CP or SOB. States that he got up to the bathroom this morning with no difficulty. Denies any abdominal symptoms, weakness, lightheadedness, palpitations. Objective Active Medications: Acetaminophen (Tylenol Tab*) 650 mg PO Q6H PRN PRN Reason: MILD PAIN or TEMP > 100.4 Atorvastatin Calcium (Lipitor*) 80 mg PO DAILY [facility] Last Admin: 12/13/19 08:23 Dose: 80 mg Colestipol HCl (Colestipol (Nf)) 1 gm PO QID [facility]; Protocol Last Admin: 12/13/19 16:23 Dose: Not Given Multivitamins/Minerals (Theragran/Minerals Tab*) 1 tab PO DAILY [facility] Last Admin: 12/13/19 08:23 Dose: 1 tab Ondansetron HCl (Zofran Inj*) 4 mg IV Q6H PRN PRN Reason: NAUSEA Oxycodone/Acetaminophen (Percocet 5/325 Tab*) 1 tab PO Q4H PRN PRN Reason: PAIN - SEVERE Vital Signs - 8 hr 12/13/19 12/13/19 15:00 17:00 Temperature 98.7 F Pulse Rate 71 Respiratory 17 Rate Blood Pressure 145/84 (mmHg) O2 Sat by Pulse 99 99 Oximetry Oxygen Devices in Use Now: None Appearance: sitting up in bed, NAD Eyes: No Scleral Icterus Ears/Nose/Mouth/Throat: Clear Oropharnyx Respiratory: Symmetrical Chest Expansion and Respiratory Effort - with significantly diminished breath sounds throughout lateral aspect of L lung, no adventitious noises noted throughout bilaterally Cardiovascular: RRR Abdominal: NL Sounds; No Tenderness; No Distention Extremities: No Edema Skin: - - pacer site to FADI covered with dressing, CDI Neurological: Alert and Oriented x 3 Nutrition: Taking PO's Result Diagrams: 12/11/19 10:13 12/11/19 10:13 Assess/Plan/Problems-Billing Mr Ruth is a 74 yo M who has a h/o CAD, PAF, HTN and HLD who presented to the ER after having a syncopal event. His event monitor was interrogated and he was found to be in mobitz type II second degree heart block and was admitted to get a pacemaker. - Patient Problems (1) Mobitz (type) II atrioventricular block Status: Acute Code(s): I44.1 - ATRIOVENTRICULAR BLOCK, SECOND DEGREE SNOMED Code(s): 05200778 Comment: Pt received pacemaker 12/11, being followed by cardiology (2) Pneumothorax Status: Acute Code(s): J93.9 - PNEUMOTHORAX, UNSPECIFIED SNOMED Code(s): 98165034 Comment: noted on morning CXR, pt stable, CT inserted by 12/12, f/u CXR in afternoon showed near complete resolution - f/u CXR in am 12/13 (3) CAD (coronary artery disease) Status: Acute Code(s): I25.10 - ATHSCL HEART DISEASE OF [place] CORONARY ARTERY W/O ANG PCTRS SNOMED Code(s): 84775779 Comment: No c/o chest pain. Continue lipitor and ASA. (4) PAF (paroxysmal atrial fibrillation) Status: Acute Code(s): I48.0 - PAROXYSMAL ATRIAL FIBRILLATION SNOMED Code(s) : 242453143 Comment: HR regular today. Eliquis to be restarted per cardiology. (5) HTN (hypertension) Status: Acute Code(s): I10 - ESSENTIAL (PRIMARY) HYPERTENSION SNOMED Code(s) : 27903394 Comment: BP is mildly elevated. Will need to check with patient to see if he takes ramipril- it is listed on the dictated H&P and not on the home med list. Continue to monitor (6) HLD (hyperlipidemia) Status: Acute Code(s): E78.5 - HYPERLIPIDEMIA, UNSPECIFIED SNOMED Code(s): 21618685 Comment: Continue lipitor. (7) Full code status Status: Acute Code(s): Z78.9 - OTHER SPECIFIED HEALTH STATUS SNOMED Code(s) : 652918214 (8) DVT prophylaxis Status: Acute Code(s): Z29.9 - ENCOUNTER FOR PROPHYLACTIC MEASURES, UNSPECIFIED SNOMED Code(s): 800904215 Comment: ambulation Attending: Grayson Gutierrez
[2019-12-14] MEDS: COLESTIPOL 1 GM PO SCH ×2 (10:03→14:19)
[2019-12-14] MEDS: Atorvastatin* 80 MG TAB PO SCH (10:03)
[2019-12-14] MEDS: Multivitamins/Minerals TAB PO SCH (10:03)
--- NOTE | 2019-12-14 11:49 | PN ---
Subjective Date of Service: 12/14/19 - s/p syncope, pacer implant, chest tube for pneumothorax. Interval History: Primary Care Physician: Meek Boss MD Adolescent Counselor: Dr. Aponte The patient feels well, no incisional pain or SOB. Patient states today he is much more alert, more himself, enjoying reading. Wants to go home if able/recommended medically. PMH/surgical hx Coronary Artery Disease (CAD) - [id number] (COPELAND to the LAD, SVG- OM branch,SVG- RCA. Cath in 2000 COPELAND+SVG's patent. [place] 90% LAD occlusion, critical circumflex occlusion, OM1- 80% occlusion, RCA 100% occluded. Atrial Flutter - (2018) Noted on EM during sleep hours. On Eliquis Throat Cancer Prostate Cancer Hypertension Hyperlipidemia Syncope - EM implanted Sleep Apnea - (2019) Mild +, more energy, sleeps better Hx flutter to eval. Prostatectomy - Radical Head and neck surgery, - [facility] Cataract Removal - (2018) [facility] [place] Medications Active Medications: Acetaminophen (Tylenol Tab*) 650 mg PO Q6H PRN PRN Reason: MILD PAIN or TEMP > 100.4 Atorvastatin Calcium (Lipitor*) 80 mg PO DAILY [facility] Last Admin: 12/14/19 10:03 Dose: 80 mg Colestipol HCl (Colestipol (Nf)) 1 gm PO QID [facility]; Protocol Last Admin: 12/14/19 10:03 Dose: Not Given Multivitamins/Minerals (Theragran/Minerals Tab*) 1 tab PO DAILY [facility] Last Admin: 12/14/19 10:03 Dose: 1 tab Ondansetron HCl (Zofran Inj*) 4 mg IV Q6H PRN PRN Reason: NAUSEA Oxycodone/Acetaminophen (Percocet 5/325 Tab*) 1 tab PO Q4H PRN PRN Reason: PAIN - SEVERE Objective Vital Signs: Temp Pulse Resp BP Pulse Ox 98.5 F 65 16 134/81 96 12/14/19 07:00 12/14/19 07:00 12/14/19 07:00 12/14/19 07:00 12/14/19 07:00 Oxygen Devices in Use Now: None Appearance: Seated in recliner chair, chest tube in, appears comfortable. Eyes: PERRLA Ears/Nose/Mouth/Throat: Clear Oropharnyx, Mucous Membranes Moist Neck: NL Appearance and Movements; NL JVP - LEFT neck s/p RT, sx Respiratory: Clear to Auscultation - symetrical excursion, no rubs, wheezes or rales. Cardiovascular: NL Sounds; No Murmurs; No JVD, RRR, No Edema, - - sternotomy scar Abdominal: NL Sounds; No Tenderness; No Distention Extremities: No Edema Skin: No Rash or Ulcers, - - Incision left axilla w/o infection, hematoma or ecymosis. Neurological: Alert and Oriented x 3, NL Muscle Strength and Tone Lines/Tubes/Other Access: Clean, Dry and Intact Peripheral IV Laboratory Results: 12/11/19 10:13 12/11/19 10:13 Total Bilirubin 0.60 mg/dL (0.2-1.0) 12/11/19 10:13 AST 24 U/L (13-39) 12/11/19 10:13 ALT 21 U/L (7-52) 12/11/19 10:13 Alkaline Phosphatase 59 U/L (34-104) 12/11/19 10:13 Total Protein 6.2 g/dL (6.4-8.9) L 12/11/19 10:13 Albumin 4.2 g/dL (3.2-5.2) 12/11/19 10:13 Globulin 2.0 g/dL (2-4) 12/11/19 10:13 Albumin/Globulin Ratio 2.1 (1-3) 12/11/19 10:13 TSH 3.52 mcIU/mL (0.34-5.60) 12/11/19 10:13 12/11/19 10:13 Troponin I 0.01 Diagnostic Imaging: Cardiac Testing: Echocardiogram - (09/24/2018) Left ventricle cavity is normal in size. Normal left ventricular shape. Visual EF 55-60%. Mildly abnl septal wall motion due to post-operative coronary artery bypass graft. Focal area of relative hypokinesis at the base of the inferior- posterior wall, best seen on short axis view. Doppler evidence of grade I ( impaired) diastolic dysfunction. Normal right ventricular systolic function. [place] trileaflet aortic valve with no regurgitation noted. Mild aortic valve leaflet thickening with mild calcification. [place] mitral valve with trace regurgitation. [place] tricuspid valve with mild regurgitation. Mild-moderately dilated ascending aorta: 4.0 cm. Compared with prior echo of 05/29/2017, LVEF is stable, MR has improved from mild/moderate, TR is stable, aorta previously 3.9 cm. Follow up cardiology is scheduled 10/10/18. 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 Resting BP 140/84 -> 204/88 No ischemia Cardiac Procedures: Coronary Bypass Grafting - (09/13/1992) COPELAND-LAD, SVG - OM, SVG- RCA Cardiac Catheterization - (06/10/1992) Cardiac Catheterization - (01/16/2001) [place]: LAD 90%, 80%, Cx 80% OM1, severe Cx, RCA 100% occluded. Grafts: COPELAND to LAD, SVG - OM1, SVG - RCA, all grafts distal to occlusions and patent. EF 45-50%. Patient Name: KELSEY FREDERICK Medical Record#: [id number] Exam Date: 12/12/19 1403 ADM Status: ADM IN Order Information: CHEST AP/PORT Accession Number: [id number] CPT: 10532 INDICATION: Status post device implant. IMPRESSION: #. Negative for pneumothorax or pulmonary edema post dual chamber cardiac pacemaker placement. <Electronically signed by Rene Cornell MD in OV> 12/12/19 1608 Dictated By: Rene Cornell MD Patient Name: KELSEY FREDERICK Medical Record#: [id number] Ordering Physician: Rosaura Aponte MD Acct.#: [id number] : 1945 Age: 74 Sex: M Location: [address] [place] [address] MEDICAL/TELEMETRY Exam Date: 12/13/19 0700 ADM Status: ADM IN Order Information: CHEST PA & LAT 2 VWS IMPRESSION: #. Moderately large LEFT pneumothorax with significant enlargement. In retrospect a minimal LEFT apical pneumothorax is evident on the exam of one day prior. #. Negative for mediastinal shift. #. Results discussed with Dr. Aponte at 12/13/2019 10:36 AM EDT <Electronically signed by Rene Cornell MD in OV> 12/13/19 1041 Dictated By: Rene Cornell MD Patient Name: KELSEY FREDERICK Medical Record#: [id number] Ordering Physician: Jose A Quintanilla MD Acct.#: [id number] : 1945 Age: 74 Sex: M Location: [address] [place] [address] MEDICAL/TELEMETRY Exam Date: 12/14/19 0800 ADM Status: ADM IN INDICATION: Follow-up LEFT pneumothorax. Post pacemaker placement. COMPARISON: December 13, 2019 1159 hours and 1000 hours. TECHNIQUE: Sitting AP 0846 hours REPORT: #. Heimlich valve type LEFT apical chest tube remains in place. Only minimal LEFT pneumothorax with the apical pleural line seen at the level of the posterior second intercostal space. Negative for mediastinal shift. #. Negative for pleural effusions. #. Cardiac pacemaker device in place with intact leads extending to the RIGHT atrium and RIGHT ventricle. LEFT chest wall cardiac loop monitor. #. The heart, pulmonary vasculature, and mediastinal contours are unremarkable. IMPRESSION: #. Heimlich valve type LEFT apical chest tube remains in place. Only minimal LEFT pneumothorax with the apical pleural line seen at the level of the posterior second intercostal space without change compared with 1159 hours exam of December 13, 2019 and marked improvement compared with the pre chest tube exam of 1000 hours December. <Electronically signed by Rene Cornell MD in OV> 12/14/19 0903 EKG Data: Stable and good pacing and sensing thresholds on interogation today. Assessment/Plan Patient with symptomatic bradycardia/AVB block with syncope without any significant reversible causes. S/p implant 12/12/2019 of dual chamber pacer implant complicated with pneumothorax (LEFT). CXR today shows improvement in pneumothorax, lead placement stable. Pt clinically feels well/better. Await Dr Quintanilla's recommendations on chest tube. From a cardiac standpoint can go home when able wrt pneumothorax. Needs wound check with me next week, pt can call office for appt: [phone]. Home on Keflex 500 mg TID x 3 days. Initial syncope appears bradycardic in origin, but original event last July was in the setting of urinary retention, can't rule out vagal mechanism and therefore concomitant BP lowering w/syncope. I did discuss this with the patient, my hope is he won't have syncope again, but could have pre syncopal symptoms with increased vagal tone.
[2019-12-14 12:17] VITALS: BP 118/67
--- NOTE | 2019-12-16 02:01 | DS ---
CC: Dr. Boss; Dr. Aponte, Cardiology* DISCHARGE SUMMARY: DATE OF ADMISSION: 12/11/19 DATE OF DISCHARGE: 12/14/19 ATTENDING PHYSICIAN: Dr. Gutierrez* (dictated by Chet Briscoe NP). PRIMARY CARE PHYSICIAN: Dr. Boss. CONSULTING PHYSICIANS: Dr. Alejandro and Dr. Aponte from Cardiology as well as Dr. Kapadia from General Surgery. PRIMARY DIAGNOSES: 1. Mobitz type II atrioventricular block with associated syncopal episode. 2. Pneumothorax status post pacemaker placement. SECONDARY DIAGNOSES: 1. Coronary artery disease. 2. History of paroxysmal atrial fibrillation. 3. Hypertension. 4. Hyperlipidemia. PROCEDURES: 1. Pacemaker placement by Dr. Aponte on 12/12/19. 2. Insertion of chest tube by Dr. Kapadia on 12/13/19. HISTORY OF PRESENT ILLNESS AND HOSPITAL COURSE: Mr. Ruth is a 74-year-old male with a past medical history significant for coronary artery disease, status post CABG, syncope x1 in 2018, paroxysmal atrial fibrillation, hypertension, hyperlipidemia, prostate cancer, and tongue cancer. He presented to the emergency department on 12/11/19 after what sounds like an episode of syncope while he was standing in his bathroom. It sounds from other reports as if there were no precipitating factors or prodrome experienced. He did hit his head on the way down and was unconscious for an unknown amount of time. He woke up on his own and felt a little groggy, went to bed and laid down. He was denying any chest pain, shortness of breath, or palpitations. His had called his doctor and they were instructed to bring the patient to emergency room. While in the emergency department, he did have another episode of dizziness. He did have his monitor interrogated which showed that he was in Mobitz type II heart block during his syncopal episode. Troponins drawn after arrival were normal. Cardiology was consulted. Per cardiology report, it was recommended to the patient that he receive a permanent pacemaker in relation to his symptomatic bradycardia and AV block with syncope without any significant reversible causes. On 12/12/19, Mr. Ruth had a pacemaker placed by Dr. Rosaura Aponte, and on the morning of 12/13/19, the patient was seemingly doing well. There was a scheduled chest x-ray to evaluate pacer placement and any potential complications for which he was noted to have a significant left-sided pneumothorax The patient was not complaining of any shortness of breath or chest pain. He had stated on the morning of 12/13/19 that he was able to get up and walk to the bathroom and back and also denied shortness of breath with that activity. He was on room air without any issues. Due to the pneumothorax , Dr. Kapadia from General Surgery was consulted. He came up on 12/13/19 and placed a Heimlich valve chest tube to the left side. Subsequent x-ray later that afternoon showed near complete resolution of the left- sided pneumothorax. The patient continued with chest tube overnight, had similar looking chest x- ray the next morning, and due to his stability and near resolution of pneumothorax, the chest tube was removed on 12/14/19. The patient was cleared for discharge. STUDIES: Brain CT read as no acute intracranial pathology. Chest x-ray from 12/11/19, impression states no acute cardiopulmonary disease. EKG from 12/11/19, normal sinus rhythm, first-degree AV block, otherwise essentially unremarkable per Cardiology. Subsequent EKGs noted after procedure by Dr. Aponte on 12/13/19 per her report are stable and good pacing and sensing thresholds on interrogation. Again, original chest x-ray showed no active cardiopulmonary disease. Chest x- ray on 12/12/19, impression states negative for pneumothorax or pulmonary edema post dual-chamber cardiac pacemaker placement. Chest x-ray on the morning of 12/13/19, impression states moderately large left pneumothorax with significant enlargement. In retrospect, a minimal left apical pneumothorax is evident on the exam of 1 day prior. Negative for mediastinal shift. Chest x-ray after chest tube insertion on 12/13/19, impression states near complete resolution of left pneumothorax post apical Heimlich valve type chest tube placement, and chest x-ray on 12/14/19, impression states Heimlich valve type left apical chest tube remains in place, only minimal left pneumothorax with apical pleural line seen at the level of the posterior second intercostal space without change compared with 1159 hours exam on 12/13/19 and marked improvement compared with the pre-chest tube exam of 10:00 hours on 12/13/19. PERTINENT LABORATORY DATA: CBC after arrival essentially unremarkable other than an MCH of 32 and absolute lymphocytes of 0.5. CMP again essentially unremarkable other than a glucose of 141 and a total protein of 6.2. TSH level was 3.52. REVIEW OF SYSTEMS: The patient denies any fever, chills, chest pain, palpitations, shortness of breath, nausea, vomiting, diarrhea, headaches, weakness, numbness, or tingling. PHYSICAL EXAMINATION: Constitutional: The patient is sitting up in chair, in no acute distress. Last Vital Signs: Temperature 98.8, heart rate 67, respiratory rate 16, O2 satuaration 95% on room air, blood pressure 118/67. HEENT: PERRL. Oropharynx clear. Cardiovascular: Heart rate regular. S1, S2 present. No murmurs, rubs, or gallops noted. Extremities: No edema. Pedal pulses present , 2+ bilaterally. Respiratory: Lung sounds clear throughout bilaterally with good air flow throughout. GI: Normoactive bowel sounds x4. Abdomen is soft and nontender. Musculoskeletal: Range of motion and strength within normal limits to all extremities. Skin: Appears dry and intact. Incision area to left upper chest is covered with dressing with scant old blood near bottom of dressing. No surrounding erythema, edema, or warmth. Neuro: Alert and oriented x3. DISCHARGE PLAN: 1. He can continue with heart-healthy diet. 2. No equipment necessary for discharge. 3. May increase to usual activity level as tolerated. 4. Mobitz type II AV block with associated syncopal episode. The patient had pacemaker placed. He will be following up with Cardiology. Plan is for him to call the office the day after discharge to set up an appointment. There are lengthy instructions related to his pacemaker placement that are listed within his printed out discharge instructions. 6. Pneumothorax status post pacemaker placement. The patient has been instructed for signs and symptoms to look out for in relation to the potential for recurrent pneumothorax. He does not need to follow up with the surgical office per Dr. Kapadia. He will have a site check at some point with Cardiology and he can follow up with them. He has been instructed, however, for any signs or symptoms of recurrent pneumothorax to call his doctor's office immediately; however, if he is in significant distress, call 911 immediately. 7. Coronary artery disease. The patient can continue Lipitor and can restart his aspirin on Sunday on 12/16/19. 8. History of paroxysmal atrial fibrillation. The patient can continue his Eliquis on 12/16/19 per Cardiology. 9. Hypertension. The patient has been normotensive with only slight elevations in BP at times during this admission. He can follow up with his primary care physician or address this at his cardiology appointment. 10. Hyperlipidemia. The patient can continue his usual Lipitor dosage. 11. Return precautions. The patient should call his doctor's office for any non - emergent concerns. If he believes there is anything cardiac related such as shortness of breath, palpitations, feeling weak, he can call the cardiology office. However, if any of these symptoms are significant or concerning to him or if he develops chest pain, he can come back to the emergency department. MEDICATIONS AT DISCHARGE: 1. Cephalexin 500 mg orally 3 times daily. 2. Colestipol 1 g orally 4 times daily. 3. Cosopt eye drops 1 drop both eyes twice daily. 4. Apixaban 5 mg orally daily to restart on 12/16/19. This has been discussed with the patient directly. 5. Multivitamin 1 tab orally every day. 6. Atorvastatin 80 mg orally every day. 7. Aspirin 81 mg orally every day, also to start 12/16/19. I spoke with the patient about following up with Cardiology prior to taking any more sildenafil, he is aware of this. CONDITION AT DISCHARGE: Stable. DISPOSITION: Home. TIME SPENT: Approximately 45 minutes was spent on the discharge and this case has been discussed with my attending physician, Dr. Gutierrez. CHET BRISCOE, TRENT [id number]/[facility] #: [id number] [place]
--- NOTE | 2019-12-16 10:58 | OP ---
CC: Dr. Meek Boss OPERATIVE NOTE: DATE OF OPERATION: 12/12/19 DATE OF : 41 SURGEON: Rosaura Aponte MD. PRE-OP DIAGNOSES: Syncope and high-degree heart block. POST-OP DIAGNOSES: Syncope and high-degree heart block. OPERATIVE PROCEDURE: Dual-chamber pacemaker implantation. ESTIMATED BLOOD LOSS: Less than 10 cc. COMPLICATIONS: None. DESCRIPTION OF PROCEDURE: The indications, risks, and benefits have been discussed with the patient and details of the procedure, and he was amenable to proceeding. The patient was right-handed and the left subclavian fossa was prepped and draped in the usual steril e fashion. A 10 cc of radiopaque dye was injected into the left upper extremity outlining the left a xillary vein and left subclavian vein. They were found to be patent (history of radiation therapy to the left neck). Following this, the patient received a 1% lidocaine for local anesthesia as well as 4 mg of Versed and 50 mcg of fentanyl for sedation. Following this, using a #10 blade knife, a 2.5-cm incision was made in the left subclavian fossa and next using Bovie and blunt dissection extended to the level of the pectoralis muscle. Additional lid ocaine was infused inferiorly and using blunt dissection, a small pocket was fashioned. Using a modified Seldinger technique, the left subclavian vein was cannulated. This took several trie s and repeat injection of dye. Once successful, the repeat procedure was repeated with the second gu idewire. Using an introducer technique, the right ventricular lead was guided into the right ventricular septu m, actively fixed in place, pacing and sensing thresholds were fair and improved to excellent over ti me. Using the second guidewire and introducer technique, the right atrial lead was guided into the right arterial appendage, actively fixed in place. It took three tries to get good thresholds, and in the third try, we used the free wall of the atrium. Then, the pacing and sensing thresholds were excellent. The leads were then sutured to the pocket. The incision was irrigated copiously with normal saline. Potato starch was placed in the pocket for hemostasis. Following this, the generator was attached to the leads and the device was placed in the pocket. Pacing and sensing thresholds remained excellent . The incision was closed with 2 layers of resorbable sutures, 2-0 followed by 4-0 followed by stapl es and external dressing. FINDINGS: The system is an MRI-compatible [employer] dual-chamber pacemaker system. The pacemaker is model number [id number], serial number [id number]. The atrial lead is a [employer], model [id number], serial number [id number] with an atrial l ead impedance of 480 ohms. P-waves are sensed at greater than 5 millivolts and an atrial pacing threshold was 0.75 volts at 0.4 milliseconds. The ventricular lead is [employer], model [id number]/58, serial number [id number]. R- waves are sensed at 6.1 millivolts with a ventricular lead impedance of 690 ohms and a ventricular pacing threshold of 0.5 volts at 0.4 milliseconds. The patient was hemodynamically stable throughout the procedure and on transfer to the floor, his low er rate was programmed at 60 beats a minute. [id number]/[facility] #: [id number]
== END 2019-12-14 17:00 | disposition home or self-care (01) | DRG 243 ==
LOC: ED 09:23 → MEDTELE 12:04 → OBSVTOIN 12-12 11:00
PROVIDERS: ADMIT Internal Medicine; ATTEND Internal Medicine
PROC: 0JH606Z Insertion of Pacemaker, Dual Chamber into Chest Subcutaneous Tissue and Fascia, Open Approach (ICD-10-PCS; 2019-12-12)
PROC: 02HK3JZ Insertion of Pacemaker Lead into Right Ventricle, Percutaneous Approach (ICD-10-PCS; 2019-12-12)
PROC: 02H63JZ Insertion of Pacemaker Lead into Right Atrium, Percutaneous Approach (ICD-10-PCS; 2019-12-12)
PROC: 0W9B30Z Drainage of Left Pleural Cavity with Drainage Device, Percutaneous Approach (ICD-10-PCS; principal; 2019-12-13)
DX: I44.1 Atrioventricular block, second degree (principal); J95.811 Postprocedural pneumothorax; I25.10 Atherosclerotic heart disease of native coronary artery without angina pectoris; I48.0 Paroxysmal atrial fibrillation; I10 Essential (primary) hypertension; E78.5 Hyperlipidemia, unspecified; R55 Syncope and collapse; G47.30 Sleep apnea, unspecified; S09.90XA Unspecified injury of head, initial encounter; W18.39XA Other fall on same level, initial encounter; Y92.002 Bathroom of unspecified non-institutional (private) residence as the place of occurrence of the external cause; Z95.1 Presence of aortocoronary bypass graft; Z85.46 Personal history of malignant neoplasm of prostate; Z85.810 Personal history of malignant neoplasm of tongue; Z79.01 Long term (current) use of anticoagulants; Z79.82 Long term (current) use of aspirin; Z79.899 Other long term (current) drug therapy; Z82.49 Family history of ischemic heart disease and other diseases of the circulatory system; Z87.891 Personal history of nicotine dependence
CPT/HCPCS: 33208; 36415; 70450; 71045; 71046; 80053; 83735; 84443; 84484; 85025; 86618; 93005; 99156; 99157; 99284; A9270-GY; C1785; C1898; G0378; J0461; J0690; J2250; J3010